=== PATIENT | male | born 1945 | race Caucasian/White ===

== ENCOUNTER 2021-11-15 13:31 | Outpatient (CLI) | payer OTHER, SELFPAY ==
--- NOTE | ~2021-11-15 | XR_ITS ---
XR hip RT min 2V 11/15/2021 13:59 Indication: Chronic hip pain Procedure: 2 views right hip Comparison: No prior studies for comparison. Findings: There is severe osteoarthritis of the right hip. No fracture or traumatic malalignment. No significant soft tissue abnormality. No foreign bodies. Impression: 1: Severe osteoarthritis of the right hip. Reviewed, dictated and finalized at location A. MIC ENGINEER Impression: 1: Severe osteoarthritis of the right hip.
== END 2021-11-15 13:32 | disposition home or self-care (01) ==
LOC: ANHIMG 13:36
PROVIDERS: PCP Internal Medicine; Visit Provider Internal Medicine
DX: M16.11 Unilateral primary osteoarthritis, right hip (principal)
CPT/HCPCS: 73502

== ENCOUNTER 2022-03-29 14:00 | Outpatient (CLI) | payer OTHER, SELFPAY ==
--- NOTE | ~2022-03-29 | CT_ITS ---
EXAMINATION: CT brain wo con DATE: 03/29/2022 14:24 INDICATION: Head injury. Syncope. TECHNIQUE: Computed tomography (CT) of the head was performed without intravenous contrast. The mA wa s adjusted according to patient size. Iterative reconstruction technique was employed. The dose-lengt h product was 605.33 mGy-cm. COMPARISON: None FINDINGS: There are scattered areas of low attenuation in the cerebral white matter. There is no intr acranial hemorrhage, acute infarction, or abnormal intracranial mass lesion. The ventricles are dieter l in size. The orbits are normal. There is mild mucosal thickening in the paranasal sinuses. The mast oid air cells are normal. IMPRESSION: 1. Mild nonspecific cerebral white matter disease, which likely represents chronic small vessel ische rayne disease. Reviewed, dictated and finalized at location A. IMPRESSION: 1. Mild nonspecific cerebral white matter disease, which likely represents transport tech nayana small vessel ischemic disease.
== END 2022-03-29 14:01 | disposition home or self-care (01) ==
PROVIDERS: PCP Internal Medicine; Visit Provider Nurse Practitioner
DX: S09.90XA Unspecified injury of head, initial encounter (principal); R90.82 White matter disease, unspecified
CPT/HCPCS: 70450

== ENCOUNTER 2022-04-09 15:21 | Inpatient (IN) | payer OTHER, SELFPAY ==
[2022-04-09] VITALS (30 sets, daily range): BP systolic 85–178; BP diastolic 60–105; PULSE 60–145; RESP 12–24; TEMP 36.6; O2SAT 82–100; BMI 28.4
--- NOTE | ~2022-04-09 | XR_ITS ---
EXAMINATION: XR chest 1V portable DATE: 04/09/2022 16:04 INDICATION: Weakness. Cardiac arrhythmia. TECHNIQUE: frontal view of the chest was obtained. COMPARISON: Chest radiograph dated 08/04/2008 FINDINGS: The lungs are clear with no focal airspace opacities, pulmonary edema, pleural effusion or pneumothor ax. The cardiomediastinal silhouette is normal. Dual lead pacemaker seen with leads projecting over t he expected locations of the right atrium and right ventricular outflow tract. A pair of defibrillato r pads project over the central chest. IMPRESSION: 1. No acute cardiopulmonary disease. Reviewed, dictated and finalized at location A.
--- NOTE | 2022-04-09 15:32 | ED.AMS ---
HPI - Altered Mental Status General Chief Complaint: Altered Mental Status Stated Complaint: altered, lethargic Time Seen by Provider: 04/09/22 15:32 History of Present Illness HPI narrative: Please start him while he was at a gathering mushrooms, he had been feeling weak and felt like he was going to pass out. History of A. fib, he has been taking all his medications. Denies any other symptoms other than feeling very lightheaded and like he is got a pass out, denies any changes with medications, states that he has just been dehydrated not drinking enough water today. Denies any chest pain, difficulty breathing MD complaint: altered mental status, decreased responsiveness and weakness Related Data Home Medications Medication Instructions Recorded Confirmed apixaban 5 mg tablet 5 mg PO BID 10/31/20 03/26/22 aspirin 81 mg tablet,delayed 81 mg PO DAILY 10/31/20 03/26/22 release carvedilol 6.25 mg tablet 6.25 mg PO ONCE tablet 02/28/22 03/26/22 pantoprazole 40 mg tablet,delayed tablet PO 02/28/22 03/26/22 release spironolactone 25 mg tablet 25 mg PO DAILY tablet 02/28/22 03/26/22 sildenafil (pulm.hypertension) 20 20 mg PO DAILY PRN tablet 03/26/22 03/26/22 mg tablet Allergies Allergy/AdvReac Type Severity Reaction Status Date / Time poison carlos extract Allergy Severe Blister Verified 03/26/22 08:26 Review of Systems Review of Systems: All systems reviewed & are unremarkable except as noted in HPI and below PMFSH Past Medical History Medical History Chronic kidney disease, stage 3 Surgical History Surgical History H/O hernia repair Family History Family History Father Family history of malignant neoplasm, Onset Age: 67 Sibling Family history of lung cancer Patient's sister is in good health Patient's brother is in good health Mother Family history of lung cancer, Onset Age: 80 Family history of cardiovascular disease Social History Social History Smoking packs per day: 0.4 Smoking cigarettes per day: 8.0 Years smoked: 4 Smoking pack-years: 1.60 Smoking status: Former smoker Second hand tobacco smoke exposure: Yes Smoking end date: 12/02/1967 Alcohol intake: current Drinks per week: 10 Alcohol use details: 2 glasses of wine per week Substance use: never Substance use type: does not use Exam Const: General: cooperative and in distress Nutritional Appearance: average body habitus Procedures Procedural Sedation Procedural Sedation #1: Procedural Sedation Date: 04/09/22 Procedural Sedation Time: 15:33 Procedure: synchronized cardioversion Provider Performed: sedation and procedure Informed Consent Obtained: yes Equipment in Room: front desk monitor, crash cart, oxygen and pulse oximeter Plan for Sedation: moderate sedation ASA Class: II Mallampati Classification: class II NPO Status: last liquid food (hours ago) Pt. Educated on Procedural Sedation: Yes Re-evaluated immediately prior: Yes Preparation: front desk monitor applied, pulse oximeter, supplemental O2 applied, reversal agents at bedside, suction/airway equipment at bedside and IV secured Midazolam: IV Midazolam dose (mg): 2 IV Etomidate dose (mg): 20 Patient Tolerated Procedure: well Complications: none Total Sedation Time (min): 20 Other Procedure Procedure 1: Other Procedure: synchronized cardioversion Discharge Plan Discharge Prescriptions: No Action Eliquis 5 mg tablet 5 mg PO BID RF: 0 aspirin [Adult Low Dose Aspirin] 81 mg tablet,delayed release (DR/EC) 81 mg PO DAILY RF: 0 sildenafil (pulm.hypertension) 20 mg tablet
--- NOTE | 2022-04-09 15:36 | PC.NURSE ---
Dr. Ann at bedside explaining risks on cardioversion. VORB for 2mg Versed and 20mg of etimodate.
--- NOTE | 2022-04-09 15:51 | PC.NURSE ---
Pt given 2 mg Versed at 1539 and, 20mg of Etomidate by Dr. Ann Pt cardioverted at 1541 at 150 joules
[2022-04-09 16:01] LABS: Basophils Percent Auto 0.7 % (0.2-1.2); Eosinophils Absolute Auto 0.1 K/mm3 (0-0.3); Eosinophils Percent Auto 1.5 % (0-4.4); Hematocrit 41.5 % (42.0-52.0); Hemoglobin 13.3 g/dL (14.0-18.0); Immature Granulocyte Absolute 0.01 K/mm3 (0.00-0.031); Immature Granulocyte Percent A 0.2 % (0-0.5); Lymphocytes Absolute Auto 0.79 K/mm3 (0.9-3.2); Lymphocytes Percent Auto 17.2 % (18.3-44.2); Mean Corpuscular Hemoglobin 31.8 pg (26-34); Mean Corpuscular Volume 99.3 fl (80-100); Mean Platelet Volume 9.9 fl (7.4-10.4); Monocytes Absolute Auto 0.5 K/mm3 (0.1-0.6); Neutrophils Absolute Auto 3.2 K/mm3 (1.3-6.7); Neutrophils Percent Auto 70.4 % (45.5-73.1); Platelet Count Result 169 k/mm3 (150-375); Red Blood Count 4.18 M/mm3 (4.6-6.20); Red Cell Distribution Width 14.8 % (11.5-14.5); White Blood Count 4.6 K/mm3 (4.5-10.0)
--- NOTE | 2022-04-09 16:08 | ECG_ITS ---
Measurements Intervals [place] Rate: 142 P: 112 SD: 67 QRS: 103 QRSD: 171 T: -77 QT: 368 QTc: 567 Interpretive Statements WIDE COMPLEX TACHYCARDIA, CONSIDER VENTRICULAR TACHYCARDIA LEFT BUNDLE BRANCH BLOCK ABNORMAL ECG Electronically Signed On 04-09-2022 16:44:18 CDT by Hunter Moreau D.O.
--- NOTE | 2022-04-09 16:08 | ECG_ITS ---
Measurements Intervals [place] Rate: 62 P: -75 NH: 330 QRS: -27 QRSD: 125 T: 79 QT: 485 QTc: 494 Interpretive Statements ELECTRONIC ATRIAL PACEMAKER INTRAVENTRICULAR CONDUCTION DELAY CONSIDER INFERIOR INFARCT, AGE INDETERMINATE ST-T WAVE ABNORMALITY IN HIGH LATERAL LEADS- CONSIDER ISCHEMIA ABNORMAL ECG Electronically Signed On 04-09-2022 16:35:01 CDT by Hunter Moreau D.O.
[2022-04-09] MEDS: RAPID SEQUENCE INTUBATION KIT 1 EACH (16:10)
[2022-04-09] MEDS: SODIUM CHLORIDE 0.9% IV 1,000 ML 999 ML IV CONT (16:10)
--- NOTE | 2022-04-09 16:10 | PC.NURSE ---
Pt is fully awake and talking but is asking the same questions over and over. Pt knows name and , and where he is but confused on date.
[2022-04-09 16:13] LABS: Alanine Aminotransferase 33 U/L (6-50); Albumin Level 3.3 g/dL (3.5-5.1); Alkaline Phosphatase 84 U/L (38-126); Anion Gap 6 mmol/L (8-16); Aspartate Amino Transferase 39 U/L (17-59); Bilirubin,Total 0.8 mg/dL (0.2-1.3); Blood Urea Nitrogen 16 mg/dL (9-20); Calcium 7.8 mg/dL (8.4-10.2); Carbon Dioxide 20 mmol/L (22-30); Chloride 112 mmol/L (98-107); Estimated CRCL calculation 42 ml/min; Estimated Glomerular Filt Rate 42; Glucose 84 mg/dL (65-110); Potassium 3.7 mmol/L (3.4-5.0); Sodium 138 mmol/L (137-145)
[2022-04-09 16:36] LABS: Troponin I 0.039 ng/mL (0.000-0.034)
[2022-04-09] MEDS: MAGNESIUM SULF 2 GM/WATER 50ML 2 GM/50 ML BAG IVPB (17:45)
[2022-04-09] MEDS: ASPIRIN 81 MG CHEWABLE TABLET 324 MG PO (17:46)
[2022-04-09] MEDS: KCL 20 MEQ/SW 100 ML 100 ML 50 MEQ IVPB (17:46)
--- NOTE | 2022-04-09 20:06 | PM.IMHP ---
H&P: HPI History of Present Illness Date/Time: 04/09/22 20:06 Chief Complaint: Syncope Narrative: This is a 77-year-old male with past medical history significant for atrial fibrillation patient just recently underwent ablation however had recurrence and then underwent cardioversion, type 2 diabetes mellitus, congestive heart failure with ejection fraction calculated to be 25-30%, implanted defibrillator pacemaker. Patient usually goes to outside hospital to get his care when it comes to heart problems. Patient goes for daily walks, today while he was doing his 2nd lap felt dizzy and returned to his car next seen patient was in the ambulance on route to the hospital and has no recollection of events. At the time of my visit patient stated he was feeling just fine, denies any chest pain, palpitations, shortness of breath, cough, PND, orthopnea, leg swelling, fevers, rigors, chills, cough, sputum production, no calves pain. Preliminary workup was significant for EKG with a wide complex tachycardia. Decision has been made to place the patient to observation for further evaluation management and treatment. Review of Systems Review of Systems: Lightheadedness, syncope. Constitutional: Constitutional: Denies chills, Denies daytime sleepiness, Denies fatigue, Denies fever(s), Denies frequent falls, Denies malaise, Denies night sweats, Denies poor appetite and Denies weakness Eyes: Eyes: Denies change in vision ENT: Denies dysphagia, Denies vertigo, Denies dizziness, Denies nasal congestion, Denies nasal discharge, Denies nasal obstruction and Denies odynophagia Cardiovascular: Cardiovascular: Denies chest pain, Denies diaphoresis, Reports syncope, Denies pedal edema, Denies irregular heart rhythm, Denies leg edema, Reports lightheadedness, Denies radiating jaw, neck or arm pain, Denies palpitations, Denies dyspnea on exertion, Denies orthopnea and Denies paroxysmal nocturnal dyspnea Respiratory: Respiratory: Denies cough, Denies excessive phlegm production and Denies dyspnea Gastrointestinal: Gastrointestinal: Denies abdominal pain, Denies dyspepsia, Denies heartburn, Denies nausea and Denies vomiting Genitourinary: Genitourinary: Reports no additional male genitourinary complaints and Reports as per HPI Musculoskeletal: Musculoskeletal: Denies back pain, Denies myalgias, Denies arthralgias, Denies joint swelling and Denies muscle weakness Integumentary/Breasts: Skin/Breast: Denies rash Neurologic: Denies focal weakness and Denies Sensory deficit (Neuro) Psychiatric: Psychiatric: Reports no additional psychiatric complaints and Reports as per HPI Endocrine: Endocrine: Denies cold intolerance, Denies heat intolerance, Denies polyphagia, Denies polydipsia and Denies palpitations Hematologic/Lymphatic: Hematologic/Lymphatic: Reports no additional hematologic/lymphatic complaints and Reports as per HPI Allergic/Immunologic: Allergic/Immunologic: Reports no additional allergic/immunologic complaints and Reports as per HPI [facility] Past Medical History Medical History Chronic kidney disease, stage 3 Surgical History Surgical History H/O hernia repair Family History Family History Father Family history of malignant neoplasm, Onset Age: 67 Sibling Family history of lung cancer Patient's sister is in good health Patient's brother is in good health Mother Family history of lung cancer, Onset Age: 80 Family history of cardiovascular disease Social History Social History Smoking packs per day: 0.4 Smoking cigarettes per day: 8.0 Years smoked: 4 Smoking pack-years: 1.60 Smoking status: Former smoker Second hand tobacco smoke exposure: Yes Smoking end date: 12/02/1967 Alcohol intake:
--- NOTE | 2022-04-09 21:53 | ADMGEN ---
This patient, Ariel Cifuentes, was admitted to IMU Room 232-01. Patient/family oriented to hospital policies and general routines including ID bracelet, bed and alarms, visiting hours, pain management, procedures, bathroom and other care routines, personal items, smoking policy, room service/diet, and visiting hours. Information on how to activate the Rapid Response Team has been discussed. Patient/Family are encouraged to report perceived risks to care and to ask questions if they do not understand what they are told or what they should do.
[2022-04-09] MEDS: SACUBITRIL/VALSARTAN 49-51 MG TABLET 1 TABLET PO (22:38)
[2022-04-09] MEDS: APIXABAN 5 MG TABLET PO (22:38)
[2022-04-10] VITALS (23 sets, daily range): BP systolic 130–183; BP diastolic 72–106; PULSE 59–73; RESP 20–22; TEMP 36.6–37.4; O2SAT 95–100
--- NOTE | 2022-04-10 | ECHO_ITS ---
Patient Info Name: Ariel Cifuentes Age: 77 years : 1945 Gender: Male Ht: 75 in Wt: 227 lbs BSA: 2.35 m2 HR: 64 bpm BP: 149 / 81 mmHg Heart Rhythm: Sinus Rhythm Technical Quality: Fair Exam Date: 04/10/2022 7:34 AM Exam Location: [facility] Pulmonary Patient Status: Inpatient Admit Date: 04/09/2022 Staff Ordering Physician: Caroline Ann MD Siding Coreboard Inspector: Irene Talamantes RDCS Attending Provider: Hill Mota M.A., MD Exam Type: CA echo doppler color flow Study Info Indications - WCT Complete two-dimensional, color flow and Doppler transthoracic echocardiogram is performed. Summary 1. Complete two-dimensional, color flow and Doppler transthoracic echocardiogram is performed. 2. Mild LVH, mild LV enlargement, borderline LV systolic function, ejection fraction approximately 50%. Diastolic dysfunction is present with elevated left heart pressures. Severe left atrial enlargement. Mild right atrial enlargement. Linear artifact in the RV/RA-pacemaker lead. Trivial mitral regurgitation. Mild aortic valve sclerosis, mild aortic valve stenosis, maximum velocity 1.7 m/sec, mean gradient 7 mmHg. ANNA MARIE is 2.1 cm2. Trace aortic regurgitation. Slus-[id number] tricuspid regurgitation, severe pulmonary hypertension, RVSP 63 mmHg. Mild pulmonic regurgitation. Left Ventricle Left ventricular chamber dimension is mildly enlarged. Left ventricular systolic function is mildly reduced, estimated at 45-50%. There is mildly increased left ventricular wall thickness. The left ventricular diastolic function is abnormal. E/e' 14.8 is elevated. Right Ventricle Right ventricular chamber dimension is normal. Right ventricular systolic function is normal. Left Atria Left atrial chamber dimension is severely enlarged. Right Atria Right atrial chamber dimension is mildly enlarged. Aortic Valve There is mild aortic valve sclerosis. There is mild aortic valve stenosis with a peak velocity of 174 cm/s, mean gradient of 7 mmHg, and aortic valve area of 1.7 cm2. There is trace aortic valve regurgitation. Pulmonic Valve The pulmonic valve is normal. There is mild pulmonic regurgitation. Mitral Valve The mitral valve has normal leaflets. There is no mitral valve stenosis. There is trace mitral valve regurgitation. Tricuspid Valve The tricuspid valve leaflets are normal. There is mild to moderate tricuspid valve regurgitation. Severe pulmonary hypertension, estimated pulmonary arterial systolic pressure is 63 mmHg. Pericardium/Pleural The pericardium appears epicardial fat pad. Inferior Vena Cava Normal inferior vena cava with >50% collapse upon inspiration consistent with Empty right atrial pressure, 10 mmHg. Aorta The aortic root size at the sinus of Valsalva is normal. The prox ascending aorta size is normal. Left Ventricular Outflow Tract Name Value Normal LVOT 2D LVOT Diameter 2.3 cm LVOT Doppler LVOT Peak Gradient 3 mmHg LVOT Mean Gradient 1 mmHg LVOT VTI 16 cm LVOT VTI/AV VTI Ratio 0.4
[2022-04-10 04:50] LABS: Anion Gap 5 mmol/L (8-16); Blood Urea Nitrogen 16 mg/dL (9-20); Calcium 7.5 mg/dL (8.4-10.2); Carbon Dioxide 21 mmol/L (22-30); Chloride 113 mmol/L (98-107); Estimated CRCL calculation 47 ml/min; Estimated Glomerular Filt Rate 49; Glucose 90 mg/dL (65-110); Magnesium 2.5 mg/dL (1.6-2.3); Potassium 3.9 mmol/L (3.4-5.0); Sodium 139 mmol/L (137-145)
[2022-04-10 04:57] LABS: Basophils Percent Auto 0.9 % (0.2-1.2); Eosinophils Absolute Auto 0.1 K/mm3 (0-0.3); Eosinophils Percent Auto 2.2 % (0-4.4); Hematocrit 39.1 % (42.0-52.0); Hemoglobin 12.9 g/dL (14.0-18.0); Immature Granulocyte Absolute 0.02 K/mm3 (0.00-0.031); Immature Granulocyte Percent A 0.4 % (0-0.5); Lymphocytes Absolute Auto 0.88 K/mm3 (0.9-3.2); Lymphocytes Percent Auto 19.3 % (18.3-44.2); Mean Corpuscular Hemoglobin 32.2 pg (26-34); Mean Corpuscular Volume 97.5 fl (80-100); Mean Platelet Volume 9.9 fl (7.4-10.4); Monocytes Absolute Auto 0.4 K/mm3 (0.1-0.6); Monocytes Percent Auto 9.7 % (2.6-8.5); Neutrophils Absolute Auto 3.1 K/mm3 (1.3-6.7); Neutrophils Percent Auto 67.5 % (45.5-73.1); Platelet Count Result 154 k/mm3 (150-375); Red Blood Count 4.01 M/mm3 (4.6-6.20); Red Cell Distribution Width 14.9 % (11.5-14.5); White Blood Count 4.6 K/mm3 (4.5-10.0)
[2022-04-10 05:09] LABS: Troponin I 0.169 ng/mL (0.000-0.034)
[2022-04-10] MEDS: ATORVASTATIN 40 MG TABLET PO (08:48)
[2022-04-10] MEDS: SACUBITRIL/VALSARTAN 49-51 MG TABLET 1 TABLET PO ×2 (08:48→16:38)
[2022-04-10] MEDS: APIXABAN 5 MG TABLET PO (08:48)
--- NOTE | 2022-04-10 10:09 | PC.NURSE ---
Telephone order read back, Dr. Bone Canceled order for Lovenox sub Q. Patient currently on Eliquis 5MG BID.
--- NOTE | 2022-04-10 10:40 | PC.NURSE ---
Spoke with [facility] regarding interrogation report. [phone]. Ban stated she will contact the rep Evelio to see where the report is and have him call us.
--- NOTE | 2022-04-10 10:48 | PC.NURSE ---
Spoke with Robert Arizmendi rep Evelio [phone]. Stated that he will fax interrogation report to the IMU. Evelio stated NO events were recorded.
--- NOTE | 2022-04-10 11:38 | PM.CNCAR ---
Assessment and Plan Assessment and plan (1) Wide-complex tachycardia: Code(s): I47.2 - Ventricular tachycardia Status: Acute Assessment and Plan: Clinical presentation more concerning for ventricular tachycardia given reported recent decline in EF to 25-30%, history of CAD, recurrent near-syncope and syncope with wide complex tachycardia status post defibrillation. However, cannot exclude SVT with aberrancy. Discussed with patient this is very difficult to determine although clinically more concerning for VT and would best be managed in this regard until proven otherwise. Discussed concern for degeneration to VF and sudden cardiac concept of upgrade pacemaker to ICD and biventricular ICD which would require transfer to an outside hospital. Discussed my recommendation for coronary angiography off Eliquis to exclude acute coronary event has precipitating ischemic contribution. Discussed options including transferred to [facility] versus [facility]. He has received much of his cardiovascular care at [facility] and so agrees to transfer to [facility]. I contacted Dr. Palomares of EP who agreed and accepted pt in transfer. -he was loaded with amiodarone after defibrillation in the ER. Of note he was recently taken off amiodarone within the past 1-2 weeks by EP. All options discussed in great detail the patient. All questions answered to his satisfaction. Spent 75 minutes in the care of this patient including examination, discussions at bedside, communication with colleagues at [facility], chart review, medical decision-making, and documentation. (2) Syncope: Code(s): R55 - Syncope and collapse Status: Acute Assessment and Plan: While precise etiology remains unclear it would be a significant coincidence for new wide complex tachycardia to be incidental and completely unrelated. Recurrent near-syncope and now syncope presenting with wide complex tachycardia concerning for VT as above. If VT felt to be explanation ICD indicated on this basis alone. However, we discussed some discrepancy and possibility this may not in fact be ventricular in origin but that I feel it is more prudent to treated as such until proven otherwise. He is in agreement with this thought process and plan of care. Will resume oral amiodarone. Carvedilol recently discontinued due to complaints of dizziness. (3) Elevated troponin: Code(s): R77.8 - Other specified abnormalities of plasma proteins Status: Acute Assessment and Plan: While he does not report anginal symptoms he has known underlying CAD and a such may be a type 2 infarction secondary to syncope related to wide complex tachycardia as opposed to acute coronary plaque rupture. 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 Hold Eliquis. I have recommended coronary angiography to redefine his coronary anatomy. 60% stenosis in LAD on left heart catheterization May 2020. (4) Nonischemic congestive cardiomyopathy: Code(s): I42.0 - Dilated cardiomyopathy Status: Acute Assessment and Plan: Reported EF declined to 25-30%, however, preliminary review of echocardiogram this hospitalization reveals EF 50% with very slight anterior hypokinesis, mild LV enlargement. Given the uncertainty in this regard I recommend transfer to [facility] for further EP evaluation and management as well as coronary angiography. He is currently compensated. Continue August Eckert. (5) CAD (coronary artery disease): Code(s): I25.10 - Atherosclerotic heart disease of [place] coronary artery without angina pectoris Status: Acute Assessment and Plan: Continue aggressive medical therapy. Aspirin 81 mg daily off Eliquis. Continue atorvastatin. Beta-duy as tolerated statin, Zetia. (6) Paroxysmal atrial fibrillation: Code(s): I48.0 - Paroxysmal atrial fibrillation
[2022-04-10 14:40] LABS: SARS-CoV-2 RNA PCR Negative
--- NOTE | 2022-04-10 15:21 | PC.NURSE ---
Called [facility] transfer center with COVID test results. Stated no other information is needed at this time.
--- NOTE | 2022-04-10 16:11 | PM.IMPN ---
Progress Note: A&P Assessment and Plan (1) Syncope: Code(s): R55 - Syncope and collapse Status: Acute Assessment and Plan: Patient's preliminary EKG showed a wide complex tachycardia Presence of pacemaker defibrillator will interrogate device (2) Paroxysmal atrial fibrillation: Code(s): I48.0 - Paroxysmal atrial fibrillation Status: Acute Assessment and Plan: Patient has undergone multiple ablations and cardioversions with no success or temporarily successful (3) Nonischemic congestive cardiomyopathy: Code(s): I42.0 - Dilated cardiomyopathy Status: Acute Assessment and Plan: Continue Entresto seen by cardiology decided on transfer for higher level of care for ICD biventricular placement and upgrade and rpt heart cath previous heart cath in may 2020 (4) Chronic kidney disease, stage 3: Code(s): N18.3 - Chronic kidney disease, stage 3 (moderate) Status: Acute Assessment and Plan: creat is 1.4 which is baseline Subjective Date/time seen: 04/10/22 16:11 Interval history: 77-year-old male with past medical history significant for atrial fibrillation patient just recently underwent ablation however had recurrence and then underwent cardioversion, type 2 diabetes mellitus, congestive heart failure with ejection fraction calculated to be 25-30%, implanted defibrillator pacemaker. Awaiting transfer to [facility] for up grade of ICD and heart cath. Pt needing higher level of care. Review of Systems Review of Systems: All systems reviewed & are unremarkable except as noted in HPI and below Exam Const: General: cooperative and healthy appearing; No in distress Nutritional Appearance: overweight Orientation/consciousness: oriented to person HENMT: Head: normal to inspection Resp: Effort & Inspection: no respiratory distress Auscultation: no rhonchi and no wheezes Cardio: Rate: regular rate Rhythm: regular rhythm GI: Inspection: normal to inspection GI Palp: No abdominal tenderness, No Guarding due to palpation present (GI) and No Hepatomegaly present Auscultation: normal bowel sounds Neuro: General: oriented to person Objective Data Vital Signs Vital Signs: Vital Signs - 24 hr 04/09/22 16:15 04/09/22 16:19 04/09/22 16:34 Temperature Pulse Rate 60 60 Pulse Rate [Monitor] 60 Respiratory Rate 18 18 12 Blood Pressure 121/68 Blood Pressure [Left Arm] 121/68 Pulse Oximetry 99 99 04/09/22 16:47 04/09/22 17:02 04/09/22 17:16 Temperature Pulse Rate 60 60 60 Pulse Rate [Monitor] Respiratory Rate 13 16 16 Blood Pressure 157/91 H Blood Pressure [Left Arm] Pulse Oximetry 99 100 04/09/22 17:17 04/09/22 17:30 04/09/22 17:31 Temperature Pulse Rate 60 63 62 Pulse Rate [Monitor] Respiratory Rate 16 20 19 Blood Pressure 163/92 H Blood Pressure [Left Arm] Pulse Oximetry 91 04/09/22 18:39 04/09/22 19:20 04/09/22 19:30 Temperature Pulse Rate 60 61 61 Pulse Rate [Monitor] Respiratory Rate 18 17 18 Blood Pressure Blood Pressure [Left Arm] Pulse Oximetry 100 100 100 04/09/22 19:31 04/09/22 19:45 04/09/22 19:46 Temperature Pulse Rate 61 60 60 Pulse Rate [Monitor] Respiratory Rate 20 18 20 Blood Pressure 178/94 H 172/105 H Blood Pressure [Left Arm] Pulse Oximetry 100 100 99 04/09/22 20:00 04/09/22 20:01 04/09/22 20:15 Temperature Pulse Rate 60 60 60 Pulse Rate [Monitor] Respiratory Rate 17 16 18 Blood Pressure 171/91 H Blood Pressure [Left Arm] Pulse Oximetry 100 99 99 04/09/22 20:16 04/09/22 21:05 04/09/22 21:29 Temperature 36.6 C Pulse Rate 60 78 72 Pulse Rate [Monitor] Respiratory Rate 21 H 18 20 Blood Pressure 174/91 H 148/88 H 162/100 H Blood Pressure [Left Arm] Pulse Oximetry 100 98 100 04/09/22 22:35 04/09/22 23:08 04/10/22 00:00 Temperature 36.6 C Pulse Rate 73 60 61 Pulse Rate [Monitor] Respiratory Rate 18 20 B
[2022-04-10] MEDS: AMIODARONE HCL 200 MG TABLET 400 MG PO (16:37)
[2022-04-11] VITALS (19 sets, daily range): BP systolic 138–174; BP diastolic 82–92; PULSE 60–76; RESP 16–22; TEMP 36.7–37.6; O2SAT 95–98
[2022-04-11] MEDS: hydrALAZINE HCL 20 MG/ML VIAL 10 MG IV PUSH (00:30)
--- NOTE | 2022-04-11 07:55 | PC.NURSE ---
Received call from [facility] transfer center. Spoke with Mrs Lozano, gave update on patient vitals and status. A bed is not available at this time, patient will remain on wait list.
[2022-04-11] MEDS: SACUBITRIL/VALSARTAN 49-51 MG TABLET 1 TABLET PO ×2 (09:23→16:51)
[2022-04-11] MEDS: ATORVASTATIN 40 MG TABLET PO (09:23)
[2022-04-11] MEDS: AMIODARONE HCL 200 MG TABLET 400 MG PO (09:24)
--- NOTE | 2022-04-11 11:25 | PM.PNCARD ---
Progress Note: A&P Assessment and Plan (1) Wide-complex tachycardia: Code(s): I47.2 - Ventricular tachycardia Status: Acute Assessment and Plan: Clinical presentation initially more concerning for ventricular tachycardia given reported recent decline in EF to 25-30%, history of CAD, recurrent near-syncope and syncope with wide complex tachycardia status post defibrillation. However, cannot exclude SVT with aberrancy. -EF 50% by echo this hospitalization. Therefore, progressive underlying CAD seems much less likely as precipitating event and explanation of prior LV dysfunction. Discussed with patient this is very difficult to determine although clinically more concerning for VT and would best be managed in this regard until proven otherwise. -he has been accepted and is awaiting transfer to [facility] for further electrophysiology evaluation and management which is not available at this institution. -continue amiodarone, reduce to 400 mg daily. (2) Syncope: Code(s): R55 - Syncope and collapse Status: Acute Assessment and Plan: Precise etiology remains unclear but it would be an unlikely coincidence for new wide complex tachycardia to be incidental and completely unrelated. If VT felt to be explanation ICD indicated on this basis alone. Continue oral amiodarone. Monitor BP, orthostatics. Carvedilol recently discontinued due to complaints of dizziness. (3) Elevated troponin: Code(s): R77.8 - Other specified abnormalities of plasma proteins Status: Acute Assessment and Plan: While he does not report anginal symptoms he has known underlying CAD and a such may be a type 2 infarction secondary to syncope related to wide complex tachycardia as opposed to acute coronary plaque rupture. 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 Hold Eliquis. I have recommended coronary angiography to redefine his coronary anatomy. 60% stenosis in LAD on left heart catheterization May 2020. (4) Nonischemic congestive cardiomyopathy: Code(s): I42.0 - Dilated cardiomyopathy Status: Acute Assessment and Plan: Prior reported EF declined to 25-30%, however, preliminary review of echocardiogram this hospitalization reveals EF approximately 50% mild LV enlargement. Continue Entresto, Jardiance. He is compensated from heart failure perspective. He is currently compensated. Continue Entresto, Jardiance. (5) CAD (coronary artery disease): Code(s): I25.10 - Atherosclerotic heart disease of [place] coronary artery without angina pectoris Status: Acute Assessment and Plan: Continue aggressive medical therapy. Aspirin 81 mg daily off Eliquis. Continue atorvastatin. Beta-duy as tolerated statin, Zetia. (6) Paroxysmal atrial fibrillation: Code(s): I48.0 - Paroxysmal atrial fibrillation Status: Acute Assessment and Plan: No noted recurrence. Recently amiodarone was discontinued and carvedilol. Continue amiodarone for now. Anticoagulation held in anticipation for possible electrophysiology procedure. (7) Pacemaker: Code(s): Z95.0 - Presence of cardiac pacemaker Status: Acute Assessment and Plan: Idylistronic device, interrogation confirms wide complex tachycardia difficult to state with certainty VT vs SVT with aberrancy as above. Normal device function. Currently a paced ventricular sensed rhythm on telemetry. (8) Chronic anticoagulation: Code(s): Z79.01 - cooker chip (current) use of anticoagulants Status: Acute Assessment and Plan: Eliquis on hold for anticipated invasive procedure. Subjective Date/time seen: Date of service: 04/11/22 11:25 Follow-up for elevated troponin, syncope, wide complex tachycardia Patient feeling well this morning. No issues overnight. Denies dizziness, chest pain, palpitations, shortness of breath. Ambulating without difficu
--- NOTE | 2022-04-11 13:53 | PM.IMPN ---
Progress Note: A&P Assessment and Plan (1) Syncope: Code(s): R55 - Syncope and collapse Status: Acute Assessment and Plan: Patient's preliminary EKG showed a wide complex tachycardia Presence of pacemaker defibrillator will interrogate device (2) Paroxysmal atrial fibrillation: Code(s): I48.0 - Paroxysmal atrial fibrillation Status: Acute Assessment and Plan: Patient has undergone multiple ablations and cardioversions with no success or temporarily successful Amiodarone adjusted today by cardiology (3) Nonischemic congestive cardiomyopathy: Code(s): I42.0 - Dilated cardiomyopathy Status: Acute Assessment and Plan: Continue Entresto seen by cardiology decided on transfer for higher level of care for ICD biventricular placement and upgrade and rpt heart cath previous heart cath in may 2020 (4) Chronic kidney disease, stage 3: Code(s): N18.3 - Chronic kidney disease, stage 3 (moderate) Status: Acute Assessment and Plan: creat is 1.4 which is baseline Subjective Date/time seen: 04/11/22 13:53 Interval history: 77-year-old male with past medical history significant for atrial fibrillation patient just recently underwent ablation however had recurrence and then underwent cardioversion, type 2 diabetes mellitus, congestive heart failure with ejection fraction calculated to be 25-30%, implanted defibrillator pacemaker. Awaiting transfer to [facility] for up grade of ICD and heart cath. Pt needing higher level of care. Awaiting transfer to [facility], pt seen by cardiology today. No issues overnight. Review of Systems Review of Systems: All systems reviewed & are unremarkable except as noted in HPI and below Exam Const: General: cooperative and healthy appearing; No in distress Nutritional Appearance: overweight Orientation/consciousness: oriented to person HENMT: Head: normal to inspection Resp: Effort & Inspection: no respiratory distress Auscultation: no rhonchi and no wheezes Cardio: Rate: regular rate Rhythm: regular rhythm GI: Inspection: normal to inspection Auscultation: normal bowel sounds Neuro: General: oriented to person Objective Data Vital Signs Vital Signs: Vital Signs - 24 hr 04/10/22 14:00 04/10/22 16:00 04/10/22 16:16 Temperature 36.8 C Pulse Rate 60 70 71 Respiratory Rate 22 H Blood Pressure 171/106 H Pulse Oximetry 100 04/10/22 16:37 04/10/22 17:36 04/10/22 18:00 Temperature Pulse Rate 73 65 Respiratory Rate Blood Pressure 174/85 H Pulse Oximetry 04/10/22 19:19 04/10/22 20:00 04/10/22 20:50 Temperature 36.6 C Pulse Rate 59 L 65 Respiratory Rate 20 Blood Pressure 183/99 H Pulse Oximetry 99 99 04/10/22 22:00 04/10/22 23:53 04/11/22 00:00 Temperature 37.4 C Pulse Rate 62 71 64 Respiratory Rate 20 Blood Pressure 170/94 H Pulse Oximetry 95 04/11/22 01:48 04/11/22 02:00 04/11/22 04:00 Temperature 37.6 C Pulse Rate 62 60 70 Respiratory Rate 16 Blood Pressure 166/88 H 160/85 H Pulse Oximetry 98 04/11/22 06:00 04/11/22 08:00 04/11/22 08:22 Temperature 37.1 C Pulse Rate 62 75 76 Respiratory Rate 22 H Blood Pressure 174/92 H Pulse Oximetry 98 98 04/11/22 09:24 04/11/22 10:00 04/11/22 12:00 Temperature Pulse Rate 72 62 71 Respiratory Rate Blood Pressure Pulse Oximetry 98 04/11/22 12:09 Temperature 37.2 C Pulse Rate 64 Respiratory Rate 20 Blood Pressure 164/82 H Pulse Oximetry 96 Intake/Output Intake/Output: Intake & Output 04/08/22 04/09/22 04/10/22 04/11/22 23:59 23:59 23:59 23:59 Intake Total 1150 1220 480 Output Total 500 450 Balance 1150 720 30 Meds/Results Medications: Active Medications Generic Name Dose Route Start Last Admin Trade Name Pabloq PRN Reason Stop Dose Admin Amiodarone HCl 400 mg 04/10/22 17:00 04/11/22 09:24 Amiodarone Hcl 200 Mg Tablet PO 400 mg BID [facility]
--- NOTE | 2022-04-11 14:38 | PC.NURSE ---
Patient is complaining of itchy back and red hands. Notified Dr. Nicholas of patient complaint. Dr. Nicholas said she checked Medication list for antibiotics or medications that could cause a rash. Will continue to monitor patient for distress or worsening condition. Benadryl cream has been ordered.
--- NOTE | 2022-04-11 14:56 | PC.NURSE ---
spoke with transfer center 14:56. There is not a bed available at this time. Patient status was updated. Patient remains on transfer list.
[2022-04-11] MEDS: DIPHENHYDRAMINE 1%/ZINC 0.1% CREAM 30 GM TUBE 1 APPLIC TOPICAL ×2 (16:51→21:44)
[2022-04-12] VITALS (25 sets, daily range): BP systolic 120–183; BP diastolic 73–101; PULSE 60–73; RESP 18–22; TEMP 35.8–36.6; O2SAT 96–100
[2022-04-12 06:33] LABS: Anion Gap 6 mmol/L (8-16); Blood Urea Nitrogen 11 mg/dL (9-20); Calcium 7.6 mg/dL (8.4-10.2); Carbon Dioxide 21 mmol/L (22-30); Chloride 105 mmol/L (98-107); Estimated CRCL calculation 62 ml/min; Estimated Glomerular Filt Rate 59; Glucose 82 mg/dL (65-110); Potassium 3.8 mmol/L (3.4-5.0); Sodium 132 mmol/L (137-145)
--- NOTE | 2022-04-12 06:48 | PC.NURSE ---
04/11/22 2330 - Spoke with [facility] transfer center and provided most recent vital signs.
[2022-04-12] MEDS: ATORVASTATIN 40 MG TABLET PO (07:59)
[2022-04-12] MEDS: diphenhydrAMINE HCl CAP 25 MG CAPSULE PO (07:59)
[2022-04-12] MEDS: SACUBITRIL/VALSARTAN 49-51 MG TABLET 1 TABLET PO ×2 (07:59→18:20)
[2022-04-12] MEDS: AMIODARONE HCL 200 MG TABLET 400 MG PO (07:59)
--- NOTE | 2022-04-12 09:03 | PM.PNCARD ---
Progress Note: A&P Assessment and Plan (1) Wide-complex tachycardia: Code(s): I47.2 - Ventricular tachycardia <LIZBETH Deutsch - Last Filed: 04/12/22 14:57> Status: Acute <LIZBETH Deutsch - Last Filed: 04/12/22 14:57> Assessment and Plan: Clinical presentation initially more concerning for ventricular tachycardia given reported recent decline in EF to 25-30%, history of CAD, recurrent near-syncope and syncope with wide complex tachycardia status post defibrillation. However, cannot exclude SVT with aberrancy. -EF 50% by echo this hospitalization. Therefore, progressive underlying CAD seems much less likely as precipitating event and explanation of prior LV dysfunction. -he has been accepted and is awaiting transfer to [facility] for further electrophysiology evaluation and management which is not available at this institution. -continue amiodarone 400mg daily -No recurrence of WCT on telemetry <LIZBETH Deutsch - Last Filed: 04/12/22 14:57> (2) Syncope: Code(s): R55 - Syncope and collapse <LIZBETH Deutsch - Last Filed: 04/12/22 14:57> Status: Acute <LIZBETH Deutsch - Last Filed: 04/12/22 14:57> Assessment and Plan: Precise etiology remains unclear but it would be an unlikely coincidence for new wide complex tachycardia to be incidental and completely unrelated. If VT felt to be explanation ICD indicated on this basis alone. Continue oral amiodarone. Monitor BP, orthostatics. Carvedilol recently discontinued due to complaints of dizziness. <LIZBETH Deutsch - Last Filed: 04/12/22 14:57> (3) Elevated troponin: Code(s): R77.8 - Other specified abnormalities of plasma proteins <LIZBETH Deutsch - Last Filed: 04/12/22 14:57> Status: Acute <LIZBETH Deutsch - Last Filed: 04/12/22 14:57> Assessment and Plan: While he does not report anginal symptoms he has known underlying CAD and a such may be a type 2 infarction secondary to syncope related to wide complex tachycardia as opposed to acute coronary plaque rupture. 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 60% stenosis in LAD on left heart catheterization May 2020. Hold Eliquis in anticipation for cardiac cath when transferred to [facility]. <LIZBETH Deutsch - Last Filed: 04/12/22 14:57> (4) Nonischemic congestive cardiomyopathy: Code(s): I42.0 - Dilated cardiomyopathy <LIZBETH Deutsch - Last Filed: 04/12/22 14:57> Status: Acute <LIZBETH Deutsch - Last Filed: 04/12/22 14:57> Assessment and Plan: Prior reported EF declined to 25-30%, however, preliminary review of echocardiogram this hospitalization reveals EF approximately 50% mild LV enlargement. Continue Entresto, Jardiance. He is compensated from heart failure perspective. Continue Entresto, Jardiance. <LIZBETH Deutsch - Last Filed: 04/12/22 14:57> (5) CAD (coronary artery disease): Code(s): I25.10 - Atherosclerotic heart disease of [place] coronary artery without angina pectoris <LIZBETH Deutsch - Last Filed: 04/12/22 14:57> Status: Acute <LIZBETH Deutsch - Last Filed: 04/12/22 14:57> Assessment and Plan: Continue aggressive medical therapy. Aspirin 81 mg daily off Eliquis. Continue atorvastatin. Beta-duy as tolerated statin, Zetia. <LIZBETH Deutsch - Last Filed: 04/12/22 14:57> (6) Paroxysmal atrial fibrillation: Code(s): I48.0 - Paroxysmal atrial fibrillation <LIZBETH Deutsch - Last Filed: 04/12/22 14:57> Status: Acute <LIZBETH Deutsch - Last Filed: 04/12/22 14:57> Assessment and Plan: No noted recurrence. Recently amiodarone was discontinued and carvedilol. Continue amiodarone for now. Anticoagulation held in anticipation for possible electrophysiology procedure. <
[2022-04-12] MEDS: DIPHENHYDRAMINE 1%/ZINC 0.1% CREAM 30 GM TUBE 1 APPLIC TOPICAL ×2 (09:09→19:59)
[2022-04-12] MEDS: METOPROLOL SUCCINATE EXT REL 12.5 MG TABCR PO (09:09)
--- NOTE | 2022-04-12 09:30 | PC.NURSE ---
Notified Cardiology of morning BP and that it was running high all night and asked if they would like to add anything for blood pressure. They stated that they would review it.
--- NOTE | 2022-04-12 10:50 | PC.NURSE ---
Received call from transfer center. Updated them with latest vitals. No bed available at this time.
[2022-04-12 14:08] LABS: Hemoglobin A1C 5.4 % (<5.7)
--- NOTE | 2022-04-12 16:13 | PM.IMPN ---
Progress Note: A&P Assessment and Plan (1) Wide-complex tachycardia: Code(s): I47.2 - Ventricular tachycardia Status: Acute Assessment and Plan: Clinical presentation initially more concerning for ventricular tachycardia given reported recent decline in EF to 25-30%, history of CAD, recurrent near-syncope and syncope with wide complex tachycardia status post defibrillation. However, cannot exclude SVT with aberrancy. -EF 50% by echo this hospitalization. Therefore, progressive underlying CAD seems much less likely as precipitating event and explanation of prior LV dysfunction. -he has been accepted and is awaiting transfer to [facility] for further electrophysiology evaluation and management which is not available at this institution. -continue amiodarone 400mg daily -No recurrence of WCT on telemetry (2) Syncope: Code(s): R55 - Syncope and collapse Status: Acute Assessment and Plan: Precise etiology remains unclear but it would be an unlikely coincidence for new wide complex tachycardia to be incidental and completely unrelated. If VT felt to be explanation ICD indicated on this basis alone. Continue oral amiodarone. Monitor BP, orthostatics. Carvedilol recently discontinued due to complaints of dizziness. (3) Elevated troponin: Code(s): R77.8 - Other specified abnormalities of plasma proteins Status: Acute Assessment and Plan: While he does not report anginal symptoms he has known underlying CAD and a such may be a type 2 infarction secondary to syncope related to wide complex tachycardia as opposed to acute coronary plaque rupture. 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 60% stenosis in LAD on left heart catheterization May 2020. Hold Eliquis in anticipation for cardiac cath when transferred to [facility]. (4) Nonischemic congestive cardiomyopathy: Code(s): I42.0 - Dilated cardiomyopathy Status: Acute Assessment and Plan: echocardiogram this hospitalization reveals EF approximately 50% mild LV enlargement. Continue Entresto, Jardiance. He is compensated from heart failure perspective. Continue Entresto, Jardiance. (5) CAD (coronary artery disease): Code(s): I25.10 - Atherosclerotic heart disease of [place] coronary artery without angina pectoris Status: Acute Assessment and Plan: Continue aggressive medical therapy. Aspirin 81 mg daily off Eliquis. Continue atorvastatin. Beta-duy as tolerated statin, Zetia. (6) Paroxysmal atrial fibrillation: Code(s): I48.0 - Paroxysmal atrial fibrillation Status: Acute Assessment and Plan: No noted recurrence. Recently amiodarone was discontinued and carvedilol. Continue amiodarone for now. Anticoagulation held in anticipation for possible electrophysiology procedure. (7) Pacemaker: Code(s): Z95.0 - Presence of cardiac pacemaker Status: Acute Assessment and Plan: Visual Realmtronic device, interrogation confirms wide complex tachycardia difficult to state with certainty VT vs SVT with aberrancy as above. Normal device function. Currently a paced ventricular sensed rhythm on telemetry. (8) Chronic anticoagulation: Code(s): Z79.01 - rn long term care (current) use of anticoagulants Status: Acute Assessment and Plan: Eliquis on hold for anticipated invasive procedure. (9) Dilutional hyponatremia: Code(s): E87.1 - Hypo-osmolality and hyponatremia Status: Acute Assessment and Plan: Acute onset of hyponatremia likely secondary to saline administration, will discontinue IV fluids and start mild fluid restriction, anticipate this to resolve by tomorrow, reviewing Is and Os, patient is positive 1800 mL over the last 2 days Subjective Date/time seen: 04/12/22 16:13 Interval history: 77-year-old male with past medical history significant for atrial fibrillation patient just recently under
[2022-04-12] MEDS: SPIRONOLACTONE 25 MG TABLET PO (20:00)
[2022-04-13] VITALS (13 sets, daily range): BP systolic 130–166; BP diastolic 75–111; PULSE 60–74; RESP 16–20; TEMP 36.1–37.1; O2SAT 96–99
[2022-04-13] MEDS: hydrALAZINE HCL 20 MG/ML VIAL 10 MG IV PUSH (00:27)
[2022-04-13 08:49] LABS: Hematocrit 43.4 % (42.0-52.0); Hemoglobin 14.4 g/dL (14.0-18.0); Mean Corpuscular HGB Conc 33.2 g/dl (32-36); Mean Corpuscular Hemoglobin 31.6 pg (26-34); Mean Corpuscular Volume 95.4 fl (80-100); Mean Platelet Volume 9.6 fl (7.4-10.4); Platelet Count Result 141 k/mm3 (150-375); Red Blood Count 4.55 M/mm3 (4.6-6.20); Red Cell Distribution Width 14.8 % (11.5-14.5)
[2022-04-13 09:03] LABS: Anion Gap 6 mmol/L (8-16); Blood Urea Nitrogen 11 mg/dL (9-20); Carbon Dioxide 22 mmol/L (22-30); Chloride 107 mmol/L (98-107); Estimated CRCL calculation 67 ml/min; Estimated Glomerular Filt Rate > 60; Glucose 84 mg/dL (65-110); Potassium 3.9 mmol/L (3.4-5.0); Sodium 135 mmol/L (137-145)
[2022-04-13] MEDS: AMIODARONE HCL 200 MG TABLET 400 MG PO (09:41)
[2022-04-13] MEDS: METOPROLOL SUCCINATE EXT REL 12.5 MG TABCR PO (09:41)
[2022-04-13] MEDS: SPIRONOLACTONE 25 MG TABLET PO (09:42)
[2022-04-13] MEDS: SACUBITRIL/VALSARTAN 49-51 MG TABLET 1 TABLET PO (09:42)
[2022-04-13] MEDS: ATORVASTATIN 40 MG TABLET PO (09:42)
--- NOTE | 2022-04-13 11:04 | PM.PNCARD ---
Progress Note: A&P Assessment and Plan (1) Wide-complex tachycardia: Code(s): I47.2 - Ventricular tachycardia Status: Acute Assessment and Plan: Clinical presentation initially more concerning for ventricular tachycardia given reported recent decline in EF to 25-30%, history of CAD, recurrent near-syncope and syncope with wide complex tachycardia status post defibrillation. However, cannot exclude SVT with aberrancy. -EF 50% by echo this hospitalization. Therefore, progressive underlying CAD seems much less likely as precipitating event and explanation of prior LV dysfunction. -he has been accepted and is awaiting transfer to [facility] for further electrophysiology evaluation and management which is not available at this institution. -continue amiodarone 400mg daily -No recurrence of WCT on telemetry (2) Syncope: Code(s): R55 - Syncope and collapse Status: Acute Assessment and Plan: Precise etiology remains unclear but it would be an unlikely coincidence for new wide complex tachycardia to be incidental and completely unrelated. If VT felt to be explanation ICD indicated on this basis alone. Continue oral amiodarone. Monitor BP, orthostatics. Carvedilol recently discontinued due to complaints of dizziness. (3) Elevated troponin: Code(s): R77.8 - Other specified abnormalities of plasma proteins Status: Acute Assessment and Plan: While he does not report anginal symptoms he has known underlying CAD and a such may be a type 2 infarction secondary to syncope related to wide complex tachycardia as opposed to acute coronary plaque rupture. 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 60% stenosis in LAD on left heart catheterization May 2020. Hold Eliquis in anticipation for cardiac cath when transferred to [facility]. (4) Nonischemic congestive cardiomyopathy: Code(s): I42.0 - Dilated cardiomyopathy Status: Acute Assessment and Plan: Prior reported EF declined to 25-30%, however, preliminary review of echocardiogram this hospitalization reveals EF approximately 50% mild LV enlargement. Continue Entresto, Jardiance. He is compensated from heart failure perspective. Continue Entresto, Jardiance. (5) CAD (coronary artery disease): Code(s): I25.10 - Atherosclerotic heart disease of [place] coronary artery without angina pectoris Status: Acute Assessment and Plan: Continue aggressive medical therapy. Aspirin 81 mg daily off Eliquis. Continue atorvastatin. Beta-duy as tolerated statin, Zetia. (6) Paroxysmal atrial fibrillation: Code(s): I48.0 - Paroxysmal atrial fibrillation Status: Acute Assessment and Plan: No noted recurrence. Recently amiodarone was discontinued and carvedilol. Continue amiodarone for now. Anticoagulation held in anticipation for possible electrophysiology procedure. (7) Pacemaker: Code(s): Z95.0 - Presence of cardiac pacemaker Status: Acute Assessment and Plan: Vinjatronic device, interrogation confirms wide complex tachycardia difficult to state with certainty VT vs SVT with aberrancy as above. Normal device function. Currently a paced ventricular sensed rhythm on telemetry. (8) Chronic anticoagulation: Code(s): Z79.01 - senior care (current) use of anticoagulants Status: Acute Assessment and Plan: Eliquis on hold for anticipated invasive procedure. Subjective Date/time seen: 04/13/22 11:04 cardiology follow up for wide complex tachycardia, syncope, atrial fibrillation No acute events overnight. Remains atrially paced on telemetry, no recurrence of WCT noteed. Patient denies any palpitations, dizziness, chest pain. Review of Systems Review of Systems: All systems reviewed & are unremarkable except as noted in HPI and below Constitutional: Constitutional: Reports as per HPI and Reports no additional consti
--- NOTE | 2022-04-13 14:06 | PM.IMPN ---
Progress Note: A&P Assessment and Plan (1) Wide-complex tachycardia: Code(s): I47.2 - Ventricular tachycardia Status: Acute Assessment and Plan: Clinical presentation initially more concerning for ventricular tachycardia given reported recent decline in EF to 25-30%, history of CAD, recurrent near-syncope and syncope with wide complex tachycardia status post defibrillation. However, cannot exclude SVT with aberrancy. -EF 50% by echo this hospitalization. Therefore, progressive underlying CAD seems much less likely as precipitating event and explanation of prior LV dysfunction. -he has been accepted and is awaiting transfer to [facility] for further electrophysiology evaluation and management which is not available at this institution. -continue amiodarone 400mg daily -No recurrence of WCT on telemetry (2) Syncope: Code(s): R55 - Syncope and collapse Status: Acute Assessment and Plan: Precise etiology remains unclear but it would be an unlikely coincidence for new wide complex tachycardia to be incidental and completely unrelated. If VT felt to be explanation ICD indicated on this basis alone. Continue oral amiodarone. Monitor BP, orthostatics. Carvedilol recently discontinued due to complaints of dizziness. (3) Elevated troponin: Code(s): R77.8 - Other specified abnormalities of plasma proteins Status: Acute Assessment and Plan: While he does not report anginal symptoms he has no known underlying CAD and a such may be a type 2 infarction secondary to syncope related to wide complex tachycardia as opposed to acute coronary plaque rupture. 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 60% stenosis in LAD on left heart catheterization May 2020. Hold Eliquis in anticipation for cardiac cath when transferred to [facility]. (4) Nonischemic congestive cardiomyopathy: Code(s): I42.0 - Dilated cardiomyopathy Status: Acute Assessment and Plan: echocardiogram this hospitalization reveals EF approximately 50% mild LV enlargement. Continue Entresto, Jardiance. He is compensated from heart failure perspective. Continue Entresto, Jardiance. (5) CAD (coronary artery disease): Code(s): I25.10 - Atherosclerotic heart disease of [place] coronary artery without angina pectoris Status: Acute Assessment and Plan: Continue aggressive medical therapy. Aspirin 81 mg daily off Eliquis. Continue atorvastatin. Beta-duy as tolerated statin, Zetia. (6) Paroxysmal atrial fibrillation: Code(s): I48.0 - Paroxysmal atrial fibrillation Status: Acute Assessment and Plan: No noted recurrence. Recently amiodarone was discontinued and carvedilol. Continue amiodarone for now. Anticoagulation held in anticipation for possible electrophysiology procedure. (7) Pacemaker: Code(s): Z95.0 - Presence of cardiac pacemaker Status: Acute Assessment and Plan: Beisentronic device, interrogation confirms wide complex tachycardia difficult to state with certainty VT vs SVT with aberrancy as above. Normal device function. Currently a paced ventricular sensed rhythm on telemetry. (8) Chronic anticoagulation: Code(s): Z79.01 - salvage determiner (current) use of anticoagulants Status: Acute Assessment and Plan: Eliquis on hold for anticipated invasive procedure. (9) Dilutional hyponatremia: Code(s): E87.1 - Hypo-osmolality and hyponatremia Status: Acute Assessment and Plan: Acute onset of hyponatremia likely secondary to saline administration, will discontinue IV fluids and start mild fluid restriction, anticipate this to resolve by tomorrow, reviewing Is and Os, patient is positive 1800 mL over the last 2 days, slowly improving Subjective Date/time seen: 04/13/22 14:06 Patient states he feels about the same as yesterday. He is continuing to have a rash on his back. H
--- NOTE | 2022-04-13 14:36 | PM.DS ---
DS: Admitting Diagnosis Discharge Date April 13, 2022 Admitting Diagnosis Presyncopal episode DS: Discharge Diagnosis Discharge Diagnosis (1) Wide-complex tachycardia: Code(s): I47.2 - Ventricular tachycardia Status: Acute Assessment and Plan: Clinical presentation initially more concerning for ventricular tachycardia given reported recent decline in EF to 25-30%, history of CAD, recurrent near-syncope and syncope with wide complex tachycardia status post defibrillation. However, cannot exclude SVT with aberrancy. -EF 50% by echo this hospitalization. Therefore, progressive underlying CAD seems much less likely as precipitating event and explanation of prior LV dysfunction. -he has been accepted and is awaiting transfer to [facility] for further electrophysiology evaluation and management which is not available at this institution. -continue amiodarone 400mg daily -No recurrence of WCT on telemetry (2) Syncope: Code(s): R55 - Syncope and collapse Status: Acute Assessment and Plan: Precise etiology remains unclear but it would be an unlikely coincidence for new wide complex tachycardia to be incidental and completely unrelated. If VT felt to be explanation ICD indicated on this basis alone. Continue oral amiodarone. Monitor BP, orthostatics. Carvedilol recently discontinued due to complaints of dizziness. (3) Elevated troponin: Code(s): R77.8 - Other specified abnormalities of plasma proteins Status: Acute Assessment and Plan: While he does not report anginal symptoms he has no known underlying CAD and a such may be a type 2 infarction secondary to syncope related to wide complex tachycardia as opposed to acute coronary plaque rupture. 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 60% stenosis in LAD on left heart catheterization May 2020. Hold Eliquis in anticipation for cardiac cath when transferred to [facility]. (4) Nonischemic congestive cardiomyopathy: Code(s): I42.0 - Dilated cardiomyopathy Status: Acute Assessment and Plan: echocardiogram this hospitalization reveals EF approximately 50% mild LV enlargement. Continue Entresto, Jardiance. He is compensated from heart failure perspective. Continue Entresto, Jardiance. (5) CAD (coronary artery disease): Code(s): I25.10 - Atherosclerotic heart disease of squaxin coronary artery without angina pectoris Status: Acute Assessment and Plan: Continue aggressive medical therapy. Aspirin 81 mg daily off Eliquis. Continue atorvastatin. Beta-duy as tolerated statin, Zetia. (6) Paroxysmal atrial fibrillation: Code(s): I48.0 - Paroxysmal atrial fibrillation Status: Acute Assessment and Plan: No noted recurrence. Recently amiodarone was discontinued and carvedilol. Continue amiodarone for now. Anticoagulation held in anticipation for possible electrophysiology procedure. (7) Pacemaker: Code(s): Z95.0 - Presence of cardiac pacemaker Status: Acute Assessment and Plan: [employer] device, interrogation confirms wide complex tachycardia difficult to state with certainty VT vs SVT with aberrancy as above. Normal device function. Currently a paced ventricular sensed rhythm on telemetry. 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 (9) Dilutional hyponatremia: Code(s): E87.1 - Hypo-osmolality and hyponatremia Status: Acute Assessment and Plan: Acute onset of hyponatremia likely secondary to saline administration, will discontinue IV fluids and start mild fluid restriction, anticipate this to resolve by tomorrow, reviewing Is and Os, patient is positive 1800 mL over the last 2 days, almost normalized by transfer DS: Summary Hospital Course R
--- NOTE | 2022-04-13 16:34 | PM.TDS ---
Transfer Discharge Sum: Prov Provider Date of admission: 04/09/22 18:41 Primary care physician: Micky Dominique DO Admitting clinician: Hill Mota MD Consults: 04/09/22 Consult to Physician Routine Comment: Consulting Provider: Ty Iqbal Reason for consultation: WCT resolved with electricity Has provider been notified: Yes DS: Admitting Diagnosis Discharge Date 04/13/22 Admitting Diagnosis presyncopal Transfer Discharge Sum: Med Medications Active and Home Medications: Home Medications apixaban 5 mg tablet 5 mg PO BID 10/31/20 [History Confirmed 04/09/22] atorvastatin 40 mg PO DAILY 04/09/22 [History Confirmed 04/09/22] empagliflozin [Jardiance] 10 mg PO DAILY 04/09/22 [History Confirmed 04/09/22] ezetimibe 10 mg PO DAILY 04/09/22 [History Confirmed 04/09/22] sacubitril-valsartan [Entresto] 1 tablet PO BID 04/09/22 [History Confirmed 04/09/22] Active Medications Amiodarone HCl (Amiodarone Hcl 200 Mg Tablet) 400 mg PO QAM [facility] Last Admin: 04/13/22 09:41 Dose: 400 mg Documented by: Atorvastatin Calcium (Atorvastatin 40 Mg Tablet) 40 mg PO DAILY [facility] Last Admin: 04/13/22 09:42 Dose: 40 mg Documented by: Diphenhydramine HCl (Diphenhydramine Hcl Cap 25 Mg Capsule) 25 mg PO Q6H PRN PRN Reason: Itching Last Admin: 04/12/22 07:59 Dose: 25 mg Documented by: Hydralazine HCl (Hydralazine Hcl 20 Mg/Ml Vial) 10 mg IV PUSH Q8H PRN PRN Reason: Blood Pressure - High Last Admin: 04/13/22 00:27 Dose: 10 mg Documented by: Metoprolol Succinate (Metoprolol Succinate Ext Rel 12.5 Mg Tabcr) 12.5 mg PO QAM [facility] Last Admin: 04/13/22 09:41 Dose: 12.5 mg Documented by: Perflutren Lipid Microsphere (Perflutren Lipid Microspheres 1.5 Ml Vial Diluted To 10 Ml Total Volume) 0 ml IV PUSH ONCE PRN; Protocol PRN Reason: adequate visualization Perflutren Lipid Microsphere (Perflutren Lipid Microspheres 1.5 Ml Vial Diluted To 10 Ml Total Volume) 0 ml IV PUSH ONCE PRN; Protocol PRN Reason: adequate visualization Sacubitril/Valsartan (Sacubitril/Valsartan 49-51 Mg Tablet) 1 tablet PO BID [facility] Last Admin: 04/13/22 09:42 Dose: 1 tablet Documented by: Spironolactone (Spironolactone 25 Mg Tablet) 25 mg PO QAM [facility] Last Admin: 04/13/22 09:42 Dose: 25 mg Documented by: Zinc Acetate/Diphenhydramine (Diphenhydramine 1%/Zinc 0.1% Cream 30 Gm Tube) 1 applic TOPICAL QID PRN PRN Reason: Itching Last Admin: 04/12/22 19:59 Dose: 1 applic Documented by: Transfer Discharge Sum: Hosp Hospital Course Hospital course: 77-year-old male with past medical history significant for atrial fibrillation and recent ablation status post recurrence and cardioversion is presenting with presyncopal episode. He also has a past medical history significant for type 2 diabetes mellitus, congestive heart failure with an EF of 25-30%, ICD and pacemaker implanted. Patient states he goes for a walk every day however today when he went for a walk he felt a little dizzy and then has some amnesia regarding the rest of the event. By the time he arrived to the ER, his symptoms have completely resolved. However, he was admitted due to an abnormal EKG and concern for electrical conductivity of the heart being abnormal. Cardiology was consulted. Clinical presentation was concerning for ventricular tachycardia due to recent decline in EF. His current loss prevention representative at [facility] was contacted and agreed to accept the patient in transfer. He was loaded with amiodarone in the ER. While awaiting transfer to [facility], patient developed some hyponatremia, likely thought to be iatrogenic from normal saline administration. IV fluids discontinued, sodium improved. Fluid restriction added, sodium essentially normalized prior to transfer. Of note, prior to discharge, patient was found to have a follicular like erythematous rash on his back that he was given Benadryl cream for with some relief. It does not appear infected, but cou
== END 2022-04-13 17:38 | disposition short-term general hospital (02) | DRG 309 ==
LOC: ANHED 16:24 → ANHIMU 20:36
PROVIDERS: Family Medicine; Internal Medicine; Nurse Practitioner Adult Health; Admitting Provider Hospitalist; Emergency Provider Emergency Medicine; PCP Internal Medicine; Visit Provider Student in an Organized Health Care Education/Training Program
DX: I47.2 Ventricular tachycardia (principal); I42.0 Dilated cardiomyopathy; E87.1 Hypo-osmolality and hyponatremia; R55 Syncope and collapse; Z20.822 Contact with and (suspected) exposure to COVID-19; I48.0 Paroxysmal atrial fibrillation; N18.30 Chronic kidney disease, stage 3 unspecified; E11.22 Type 2 diabetes mellitus with diabetic chronic kidney disease; I50.9 Heart failure, unspecified; Z87.891 Personal history of nicotine dependence; Z95.0 Presence of cardiac pacemaker; Z79.01 Long term (current) use of anticoagulants; Z79.899 Other long term (current) drug therapy; Z82.49 Family history of ischemic heart disease and other diseases of the circulatory system; Z80.1 Family history of malignant neoplasm of trachea, bronchus and lung; Z79.84 Long term (current) use of oral hypoglycemic drugs; R77.8 Other specified abnormalities of plasma proteins; I25.10 Atherosclerotic heart disease of native coronary artery without angina pectoris; R21 Rash and other nonspecific skin eruption
CPT/HCPCS: 36415; 71045; 80048; 80053; 83036; 83735; 84484; 85025; 85027; 92960; 93005; 93306; 96365; 96368; 99285; A9270; C9803; J0282; J0360; J2250; J3475; J3480; J7030; U0003; U0005

== ENCOUNTER 2022-07-17 15:53 | Outpatient (CLI) | payer OTHER, SELFPAY ==
--- NOTE | ~2022-07-17 | XR_ITS ---
EXAMINATION: XR chest 2V DATE: 07/17/2022 16:21 INDICATION: Shortness of breath. TECHNIQUE: Frontal and lateral views of the chest were obtained. COMPARISON: Chest single view 04/09/2022 FINDINGS: There are airspace opacities in right middle lobe and right lower lobe. There is mild atele ctasis in left lower lung zone. There is a small to moderate-sized right pleural effusion. There is a small left pleural effusion. No pneumothorax. The heart size is normal. There is a left chest pacer/ defibrillator with leads in right atrium, right ventricle, and coronary sinus. IMPRESSION: 1. Small to moderate-sized right pleural effusion with airspace opacities in right middle lobe and ri ght lower lobe, consistent with pneumonia. 2. Small left pleural effusion with mild atelectasis in left lower lung zone. Reviewed, dictated and finalized at location A. IMPRESSION: 1. Small to moderate-sized right pleural effusion with airspace opacities in ri ght middle lobe and right lower lobe, consistent with pneumonia. 2. Small left pleural effusion with mild atelectasis in left lower lung zone.
== END 2022-07-17 15:54 | disposition home or self-care (01) ==
PROVIDERS: PCP Internal Medicine; Visit Provider Nurse Practitioner
DX: R06.02 Shortness of breath (principal); Z87.09 Personal history of other diseases of the respiratory system; J90 Pleural effusion, not elsewhere classified
CPT/HCPCS: 71046

== ENCOUNTER 2022-07-19 13:29 | Observation (INO) | payer OTHER, SELFPAY ==
[2022-07-19] VITALS (24 sets, daily range): BP systolic 132–171; BP diastolic 83–111; PULSE 60–91; RESP 14–23; TEMP 36.2–37.1; O2SAT 88–100; BMI 29.4
--- NOTE | ~2022-07-19 | XR_ITS ---
EXAMINATION: [id number] DATE: 07/20/2022 11:46 INDICATION: Status post right thoracentesis TECHNIQUE: frontal and lateral views of the chest were obtained. COMPARISON: Chest radiograph and CT dated 07/19/2022 FINDINGS: Decrease in size of a small right pleural effusion. Opacities in the right lower lung zone consistent with associated right lower lobar atelectasis and/or pneumonia. Minimal streaky left basilar atelect asis. No pulmonary edema, pneumothorax or left-sided pleural effusion. Cardiomegaly. Three lead pacem aleida/AICD seen with leads projecting over the expected locations of the right atrial appendage, apex of the right ventricle and overlying the left ventricle likely having traversed the coronary sinus. IMPRESSION: 1. Decreased small right pleural effusion with associated right lower lobar atelectasis the/or pneumo maykel. 2. Cardiomegaly. Reviewed, dictated and finalized at location A. IMPRESSION: 1. Decreased small right pleural effusion with associated right lower lobar ate lectasis the/or pneumonia. 2. Cardiomegaly.
--- NOTE | ~2022-07-19 | XR_ITS ---
EXAMINATION: XR chest 2V DATE: 07/19/2022 14:18 INDICATION: Shortness of breath TECHNIQUE: PA and lateral views of the chest are obtained. COMPARISON: 07/17/2022 FINDINGS: There is a [id number] sized right pleural effusion without significant change. A sma ll left pleural effusion is stable. There are stable airspace opacities of the lower lobes and right middle lobe. The heart size is normal. A triple lead cardiac pacemaker of the left chest wall ends wi th leads in expected locations. There are bridging osteophytes at multiple levels in the spine, consi stent with diffuse idiopathic skeletal hyperostosis (DISH). IMPRESSION: 1. Small to moderate size right pleural effusion and small left pleural effusion without significant change. 2. Airspace opacities of the lung bases and right middle lobe, consistent with atelectasis versus pne umonia. Reviewed, dictated and finalized at location A. IMPRESSION: 1. Small to moderate size right pleural effusion and small left pleural effusio n without significant change. 2. Airspace opacities of the lung bases and right middle lobe, consistent with atelectasis versus pneumonia.
--- NOTE | ~2022-07-19 | CT_ITS ---
EXAMINATION: CTA chest PE protocol DATE: 07/19/2022 18:41 INDICATION: Shortness of breath. TECHNIQUE: Computed tomography angiography (CTA) of the chest was performed with 100 mL Omnipaque-350 intravenous contrast timed to evaluate the pulmonary arteries. Coronal maximum intensity projection 3D-reconstructions were created by the technologist. Automated exposure control and iterative reconst ruction technique were employed. The dose-length product was 781.77 mGy-cm. COMPARISON: Chest CT 10/04/2008 FINDINGS: There are large right and small left pleural effusions. There is smooth septal thickening i n the lungs, consistent mild pulmonary edema. There is atelectasis involving right middle lobe and ri ght lower lobe. There is hypoenhancement in right lung lower lobe. Cardiomegaly is noted. There are c oronary artery calcifications. No pericardial effusion. There is a left chest wall pacer with leads i n the right atrium and right ventricle. There is no pulmonary embolus. There are cysts in the liver m easuring up to 2.8 cm. There are bridging endplate osteophytes at multiple levels in the spine, consi stent with diffuse idiopathic skeletal hyperostosis (DISH). There is severe cervical spondylosis. IMPRESSION: 1. No pulmonary embolus. 2. Mild pulmonary edema. 3. Large right and small left pleural effusions. 4. Hypoenhancement in atelectasis in right lower lobe is indeterminate for pneumonia. 5. Cardiomegaly. Reviewed, dictated and finalized at location A. IMPRESSION: 1. No pulmonary embolus. 2. Mild pulmonary edema. 3. Large right and small left pleural effusions. 4. Hypoenhancement in atelectasis in right lower lobe is indeterminate for pneu monia. 5. Cardiomegaly.
--- NOTE | ~2022-07-19 | XR_ITS ---
EXAMINATION: XR chest 1V portable DATE: 07/22/2022 06:36 INDICATION: Shortness of breath. TECHNIQUE: A single frontal view of the chest was obtained. COMPARISON: Chest 2 views 07/19/2022, chest CT 07/19/2022 FINDINGS: There is a small right pleural effusion. There are airspace opacities at right lung base. N o pneumothorax. Cardiomegaly is noted. There is a left chest pacer/defibrillator with leads in right atrium, right ventricle, and coronary sinus. IMPRESSION: 1. Stable small right pleural effusion. 2. Improved airspace opacities at right lung base, consistent with atelectasis versus pneumonia. 3. Cardiomegaly. Reviewed, dictated and finalized at location A.
--- NOTE | ~2022-07-19 | US_ITS ---
EXAMINATION: US thoracentesis DATE: 07/20/2022 11:55 INDICATION: Right pleural effusion TECHNIQUE: The procedure and its risks and benefits were discussed with the patient. Potential risks discussed included bleeding, infection, and pneumothorax. The patient understood the risks and agreed to proceed. The skin was prepped and draped in sterile fashion. 1% lidocaine was used for local anes thesia. Under ultrasound guidance, a 5 Fr catheter with trochar was advanced into the right pleural e ffusion. Fluid was aspirated. The catheter was removed, and a dressing was applied. There were no imm ediate complications. FINDINGS: Ultrasound images demonstrate a moderate-sized right pleural effusion and the catheter within the flu id. IMPRESSION: 1. Successful ultrasound-guided thoracentesis yielding 1200 mL of clear dark yellow fluid. Reviewed, dictated and finalized at location A. IMPRESSION: 1. Successful ultrasound-guided thoracentesis yielding 1200 mL of clear dark y ellow fluid.
--- NOTE | 2022-07-19 13:53 | ECG_ITS ---
Measurements Intervals [place] Rate: 78 P: 60 WY: 168 QRS: -87 QRSD: 207 T: 64 QT: 514 QTc: 586 Interpretive Statements ELECTRONIC ATRIAL PACEMAKER ELECTRONIC VENTRICULAR PACEMAKER ATYPICAL ECG COMPARED TO ECG 04/09/2022 15:43:59 NO SIGNIFICANT CHANGES Electronically Signed On 07-19-2022 13:59:11 CDT by Ty Iqbal M.D.
[2022-07-19 14:08] LABS: Basophils Absolute Auto 0.1 K/mm3 (0.0-0.1); Basophils Percent Auto 1.2 % (0.2-1.2); Eosinophils Absolute Auto 0.1 K/mm3 (0-0.3); Eosinophils Percent Auto 1.6 % (0-4.4); Hematocrit 40.3 % (42.0-52.0); Hemoglobin 12.8 g/dL (14.0-18.0); Immature Granulocyte Absolute 0.02 K/mm3 (0.00-0.031); Immature Granulocyte Percent A 0.4 % (0-0.5); Lymphocytes Absolute Auto 0.72 K/mm3 (0.9-3.2); Lymphocytes Percent Auto 14.4 % (18.3-44.2); Mean Corpuscular HGB Conc 31.8 g/dl (32-36); Mean Corpuscular Hemoglobin 31.1 pg (26-34); Mean Corpuscular Volume 97.8 fl (80-100); Mean Platelet Volume 9.4 fl (7.4-10.4); Monocytes Absolute Auto 0.3 K/mm3 (0.1-0.6); Monocytes Percent Auto 6.4 % (2.6-8.5); Neutrophils Absolute Auto 3.8 K/mm3 (1.3-6.7); Platelet Count Result 249 k/mm3 (150-375); Red Blood Count 4.12 M/mm3 (4.6-6.20)
[2022-07-19 14:21] LABS: Alanine Aminotransferase 42 U/L (6-50); Albumin Level 3.3 g/dL (3.5-5.1); Alkaline Phosphatase 95 U/L (38-126); Anion Gap 3 mmol/L (8-16); Aspartate Amino Transferase 47 U/L (17-59); Bilirubin,Total 0.7 mg/dL (0.2-1.3); Blood Urea Nitrogen 20 mg/dL (9-20); Calcium 8.3 mg/dL (8.4-10.2); Carbon Dioxide 29 mmol/L (22-30); Chloride 105 mmol/L (98-107); Estimated CRCL calculation 44 ml/min; Estimated Glomerular Filt Rate 45; Glucose 84 mg/dL (65-110); Potassium 4.3 mmol/L (3.4-5.0); Sodium 137 mmol/L (137-145)
--- NOTE | 2022-07-19 16:23 | PC.NURSE ---
called lab and spoke with Marisela @ [phone] to add on the BNP ordered -NC
[2022-07-19 16:51] LABS: NT Pro B Type Natriuretic Pept 7260 pg/mL (5-100)
--- NOTE | 2022-07-19 16:59 | ED.GENADULT ---
HPI - General Adult General Chief complaint: Shortness of Breath/Dyspnea Stated complaint: sob Time Seen by Provider: 07/19/22 16:16 History of Present Illness HPI narrative: 77-year-old male presenting to the emergency department for evaluation of worsening exertional shortness of breath. 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 Discharge summary from patient's last follow-up with his primary care physician noted that the patient had a drained pleural effusion. Patient states he has been home for approximately 2 weeks. Patient began having some exertional shortness of breath and was started on cefdinir by his primary care physician. Related Data Home Medications Medication Instructions Recorded Confirmed apixaban 5 mg tablet (Eliquis) 5 mg PO BID 10/31/20 07/17/22 ezetimibe 10 mg tablet 10 mg PO DAILY 04/09/22 07/17/22 metoprolol succ 25 1 tablet PO DAILY 04/23/22 07/17/22 mg-hydrochlorothiazide 12.5 mg tablet,ext.rel 24 hr aspirin 81 mg tablet,delayed 81 mg PO DAILY 05/14/22 07/17/22 release amiodarone 400 mg tablet 200 mg PO DAILY 07/17/22 07/17/22 Allergies Allergy/AdvReac Type Severity Reaction Status Date / Time poison carlos extract Allergy Severe Blister Verified 07/19/22 15:33 Review of Systems Review of Systems: CONSTITUTIONAL: Denies fever, chills, or sweats. EYES: Denies visual changes, redness, or discharge. ENT: Denies rhinorrhea, congestion, sore throat, or otalgia. CARDIOVASCULAR: Denies chest pain, palpitations, or edema. RESPIRATORY: Exertional shortness of breath, see HPI GASTROINTESTINAL: Denies abdominal pain, nausea, vomiting, or diarrhea. GENITOURINARY: Denies dysuria or hematuria. SKIN: Denies rash or itching. MUSCULOSKELETAL: Denies back pain, joint pain, or myalgia. NEUROLOGIC: Denies headache, numbness, or weakness. [facility] Past Medical History Medical History CAD (coronary artery disease) Chronic anticoagulation Chronic kidney disease, stage 3 Nonischemic congestive cardiomyopathy Pacemaker Ventricular tachyarrhythmia Surgical History Surgical History H/O hernia repair Family History Family History Father Family history of malignant neoplasm, Onset Age: 67 Sibling Family history of lung cancer Patient's sister is in good health Patient's brother is in good health Mother Family history of lung cancer, Onset Age: 80 Family history of cardiovascular disease Social History Social History Smoking packs per day: 0.4 Smoking cigarettes per day: 8.0 Years smoked: 4 Smoking pack-years: 1.60 Smoking status: Former smoker Second hand tobacco smoke exposure: Yes Smoking end date: 12/02/1967 Alcohol intake: never Drinks per week: 10 Alcohol use details: 2 glasses of wine per week Substance use: never Substance use type: does not use Spiritual care concerns: Yes Exam Narrative: APPEARANCE: Well appearing, no pain, no distress, well-nourished. HEAD: normocephalic, atraumatic. EYES: PERRLA/EOMI, conjunctivae clear. NOSE: Normal no drainage NECK: Supple. No adenopathy, no masses. RESPIRATORY: Airway patent, respirations nonlabored. Clear to auscultation bilaterally, no rales, rhonchi, wheezing. CARDIOVASCULAR: Regular rate and rhythm without murmurs rubs or gallops. ABDOMINAL: Soft, nontender, nondistended, normal bowel sounds MUSCULOSKELETAL: Moves all extremities. Strength/ROM intact, No edema, No calf tenderness. NEURO: Alert. Cranial nerves II through XII intact. Grossly intact SKIN: Warm, dry. Normal Color Course Course Emergency Course: Patient was started on Lasix for the elevated BNP. CTA showed no evidence of pulm embolism but did show bilateral pleur
[2022-07-19] MEDS: ALBUTEROL SULFATE NEB 2.5 MG/3 ML INH 5 MG INHALATION (17:12)
[2022-07-19] MEDS: FUROSEMIDE INJ 40 MG/4 ML VIAL IV PUSH (17:29)
--- NOTE | 2022-07-19 20:23 | ADMGEN ---
This patient, Ariel Cifuentes, was admitted to Medical Room 250-01. Patient/family oriented to hospital policies and general routines including ID bracelet, bed and alarms, visiting hours, pain management, procedures, bathroom and other care routines, personal items, smoking policy, room service/diet, and visiting hours. Information on how to activate the Rapid Response Team has been discussed. Patient/Family are encouraged to report perceived risks to care and to ask questions if they do not understand what they are told or what they should do.
[2022-07-19 20:32] LABS: SARS-CoV-2 RNA PCR Negative
--- NOTE | 2022-07-19 22:29 | PM.IMHP ---
H&P: HPI History of Present Illness Date/Time: 07/19/22 22:29 Chief Complaint: Dyspnea on exertion Narrative: Greater than 30 minutes spent reviewing chart, evaluating, treating, counseling patient. Anticipate less than 48 hour admission, will admit under observation. 77-year-old male past medical history of CAD ([facility] 05/2020 showing 60% lad stenosis), heart failure reduced ejection fraction (04/2022 TTE LVEF 50%, DD, mild LV enlargement), status post ppm, history of ventricular tachyarrhythmia now status post AICD April/2022, paroxysmal AFib on Eliquis, BPH, HTN/HLD. Presents with dyspnea on exertion that started last Saturday. Patient was recently admitted at [place] 06/2022 for heart failure exacerbation and pneumonia. He had a large right pleural effusion that was drained, 1.5 L out on the right side. 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 He states he had 2 days of antibiotics and then did not receive anymore. He recently saw his PCP and was started on cefdinir for 10 days, which he has taken 1 day of. He denies any fevers or chills, however had a productive cough of clear sputum with intermittent pink sputum that started today. Denies chest pain. Denies nausea/vomiting, diarrhea/constipation, hematuria/dysuria. Denies worsening lower extremity edema, abdominal distention. In ED, vitals stable. Labs remarkable [place] 7260. CT PA done that was negative for PE, however large right pleural effusion with compressive atelectasis noted and mild pulmonary congestion. Patient was given a dose of IV Lasix, albuterol treatment. Review of Systems Review of Systems: Ten point ROS reviewed, negative unless otherwise specified per HPI [facility] Past Medical History Medical History CAD (coronary artery disease) Chronic anticoagulation Chronic kidney disease, stage 3 Nonischemic congestive cardiomyopathy Pacemaker Ventricular tachyarrhythmia Surgical History Surgical History H/O hernia repair Family History Family History Father Family history of malignant neoplasm, Onset Age: 67 Sibling Family history of lung cancer Patient's sister is in good health Patient's brother is in good health Mother Family history of lung cancer, Onset Age: 80 Family history of cardiovascular disease Social History Social History Smoking packs per day: 0.4 Smoking cigarettes per day: 8.0 Years smoked: 4 Smoking pack-years: 1.60 Smoking status: Former smoker Second hand tobacco smoke exposure: Yes Smoking end date: 12/02/1967 Alcohol intake: never Drinks per week: 10 Alcohol use details: 2 glasses of wine per week Substance use: never Substance use type: does not use Spiritual care concerns: Yes Meds Home Medications and Allergies Home Medications Medication Instructions Recorded Confirmed Type apixaban 5 mg tablet (Eliquis) 5 mg PO BID 10/31/20 07/19/22 History ezetimibe 10 mg tablet 10 mg PO DAILY 04/09/22 07/19/22 History aspirin 81 mg tablet,delayed 81 mg PO HS 05/14/22 07/19/22 History release amiodarone 400 mg tablet 200 mg PO DAILY 07/17/22 07/19/22 History cefdinir 300 mg capsule 300 mg PO Q12H 10 days #20 caps 07/17/22 07/19/22 Rx metoprolol tartrate 25 mg tablet 50 mg PO HS 07/19/22 07/19/22 History Allergies Allergy/AdvReac Type Severity Reaction Status Date / Time poison carlos extract Allergy Severe Blister Verified 07/19/22 22:45 Vital Signs Vital Signs - 24 hr 07/19/22 13:47 07/19/22 15:29 07/19/22 15:32 Temperature 98.7 F Pulse Rate 63 62 Respiratory Rate 17 17 Blood Pressure 132/83 161/102 H Pulse Oximetry 98 100 Oxygen Delivery Room Air Room Air 07/19/22 15:24 07/19/22 15:25 07/19/22 15:30
[2022-07-19] MEDS: AZITHROMYCIN 250 MG TABLET 500 MG PO (23:12)
[2022-07-19] MEDS: METOPROLOL TARTRATE 50 MG TAB PO (23:12)
[2022-07-20] VITALS (12 sets, daily range): BP systolic 132–174; BP diastolic 75–95; PULSE 60–76; RESP 16–20; TEMP 36.1–36.7; O2SAT 90–99
[2022-07-20 05:43] LABS: INR 1.4; Prothrombin Time 16.8 Seconds (11.1-14.7)
[2022-07-20 05:48] LABS: Lactate Dehydrogenase 216 U/L (120-246)
[2022-07-20 05:55] LABS: Basophils Absolute Auto 0.1 K/mm3 (0.0-0.1); Basophils Percent Auto 1.3 % (0.2-1.2); Eosinophils Absolute Auto 0.1 K/mm3 (0-0.3); Eosinophils Percent Auto 1.8 % (0-4.4); Hematocrit 37.6 % (42.0-52.0); Hemoglobin 12.2 g/dL (14.0-18.0); Immature Granulocyte Absolute 0.01 K/mm3 (0.00-0.031); Immature Granulocyte Percent A 0.3 % (0-0.5); Lymphocytes Absolute Auto 0.79 K/mm3 (0.9-3.2); Lymphocytes Percent Auto 19.8 % (18.3-44.2); Mean Corpuscular HGB Conc 32.4 g/dl (32-36); Mean Corpuscular Hemoglobin 31.3 pg (26-34); Mean Corpuscular Volume 96.4 fl (80-100); Monocytes Absolute Auto 0.4 K/mm3 (0.1-0.6); Monocytes Percent Auto 9.5 % (2.6-8.5); Neutrophils Absolute Auto 2.7 K/mm3 (1.3-6.7); Neutrophils Percent Auto 67.3 % (45.5-73.1); Platelet Count Result 231 k/mm3 (150-375)
[2022-07-20 07:58] LABS: Anion Gap 5 mmol/L (8-16); Blood Urea Nitrogen 18 mg/dL (9-20); Carbon Dioxide 28 mmol/L (22-30); Chloride 106 mmol/L (98-107); Estimated CRCL calculation 42 ml/min; Estimated Glomerular Filt Rate 42; Glucose 90 mg/dL (65-110); Sodium 139 mmol/L (137-145)
[2022-07-20 08:57] LABS: Partial Thromboplastin Time 34.2 SECONDS (22.3-36.8)
--- NOTE | 2022-07-20 09:45 | P.PNIM_ITS ---
Progress Note: A&P Assessment and Plan (1) Pleural effusion: Code(s): J90 - Pleural effusion, not elsewhere classified Status: Acute Assessment and Plan: * Recurrent right pleural effusion, appears to have began in June. * 04/2022 chest x-ray does not show right pleural effusion. 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 * BNP is 7260 * IV lasix 40mg IV daily continued, titrate as indicated * Daily weights * Strict I&Os * Trend output (3) CAD (coronary artery disease): Code(s): I25.10 - Atherosclerotic heart disease of [place] coronary artery without angina pectoris Status: Acute Assessment and Plan: * Continue aspirin and Zetia * No notable chest pain (4) Chronic kidney disease, stage 3: Code(s): N18.3 - Chronic kidney disease, stage 3 (moderate) Status: Acute Assessment and Plan: * Current BUN/Cr 18/1.60 * Baseline appears to be 1.10-1.50 * Trend labs * Appears to be at baseline * Avoid nephrotoxic medications * Consider urine studies (5) Paroxysmal atrial fibrillation: Code(s): I48.0 - Paroxysmal atrial fibrillation Status: Acute Assessment and Plan: * Currently A paced per EKG * Tele monitor * Continue metoprolol * Hold Eliquis in anticipation of thoracentesis. Time Spent With Patient Time with patient: Greater than 35 minutes Subjective Date/time seen: 07/20/22944 Interval history: 07/20/22944 Patient was lying in bed. Patient was saying that he feels pretty well he was concerned about hematoma in his right elbow. It appears that he had an IV started there and it did not go well. There is no warmth or redness to it it seems very stable. He also is concerned about the dribbling and he states that he is fully emptying however he feels like there is a little left in his penis and that it just is dribbling out and will stop. He states that he does have some shortness of breath with walking however he did state that it is better worse with how fast he is walking. He currently denies any chest pain, nausea, vomiting, diarrhea, constipation, weakness or fatigue. He is anxious about getting his thoracentesis completed. He does state that he is not short of breath however when he talks using kind of here his shortness of breath. However he does look comfortable on does not seem to be in any distress at this time. 07/19/22? 22:29 77-year-old male past medical history of CAD ([facility] 05/2020 showing 60% lad stenosis), heart failure reduced ejection fraction (04/2022 TTE LVEF 50%, DD, mild LV enlargement), status post ppm, history of ventricular tachyarrhythmia now status post AICD April/2022, paroxysmal AFib on Eliquis, BPH, HTN/HLD.? Presents with dyspnea on exertion that started last Saturday.? Patient was recently admitted at [place] 06/2022 for heart failure exacerbation and pneumonia.? He had a large right pleural effusion gifty
--- NOTE | 2022-07-20 09:45 | PM.IMPN ---
Progress Note: A&P Assessment and Plan (1) Pleural effusion: Code(s): J90 - Pleural effusion, not elsewhere classified Status: Acute Assessment and Plan: Recurrent right pleural effusion, appears to have began in June. 04/2022 chest x-ray does not show right pleural effusion. 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 BNP is 7260 IV lasix 40mg IV daily continued, titrate as indicated Daily weights Strict I&Os Trend output (3) CAD (coronary artery disease): Code(s): I25.10 - Atherosclerotic heart disease of [place] coronary artery without angina pectoris Status: Acute Assessment and Plan: Continue aspirin and Zetia No notable chest pain (4) Chronic kidney disease, stage 3: Code(s): N18.3 - Chronic kidney disease, stage 3 (moderate) Status: Acute Assessment and Plan: Current BUN/Cr 18/1.60 Baseline appears to be 1.10-1.50 Trend labs Appears to be at baseline Avoid nephrotoxic medications Consider urine studies (5) Paroxysmal atrial fibrillation: Code(s): I48.0 - Paroxysmal atrial fibrillation Status: Acute Assessment and Plan: Currently A paced per EKG Tele monitor Continue metoprolol Hold Eliquis in anticipation of thoracentesis. Time Spent With Patient Time with patient: Greater than 35 minutes Subjective Date/time seen: 07/20/22944 Interval history: 07/20/22944 Patient was lying in bed. Patient was saying that he feels pretty well he was concerned about hematoma in his right elbow. It appears that he had an IV started there and it did not go well. There is no warmth or redness to it it seems very stable. He also is concerned about the dribbling and he states that he is fully emptying however he feels like there is a little left in his penis and that it just is dribbling out and will stop. He states that he does have some shortness of breath with walking however he did state that it is better worse with how fast he is walking. He currently denies any chest pain, nausea, vomiting, diarrhea, constipation, weakness or fatigue. He is anxious about getting his thoracentesis completed. He does state that he is not short of breath however when he talks using kind of here his shortness of breath. However he does look comfortable on does not seem to be in any distress at this time. 07/19/22? 22:29 77-year-old male past medical history of CAD ([facility] 05/2020 showing 60% lad stenosis), heart failure reduced ejection fraction (04/2022 TTE LVEF 50%, DD, mild LV enlargement), status post ppm, history of ventricular tachyarrhythmia now status post AICD April/2022, paroxysmal AFib on Eliquis, BPH, HTN/HLD.? Presents with dyspnea on exertion that started last Saturday.? Patient was recently admitted at [place] 06/2022 for heart failure exacerbation and pneumonia.? He had a large right pleural effusion that was drained, 1.5 L out on the right side.? 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 He states he had 2 days of antibiotics and then did not receive anymore.? He recently saw his PCP and was started on cefdinir for 10 days, which he has taken 1 day of.? He denies any fevers or chills, however had a productive cough of clear sputum with intermittent pink sputum that started today.? Denies chest pain.? Denies nausea/vomiting, diarrhea/constipation, hematuria/dysuria.? Denies worsening lo
[2022-07-20 12:50] LABS: Pleural fluid source Pleural fluid
[2022-07-20 12:51] LABS: Appearance Pleural Fluid Cloudy (Clear); Color Pleural Fluid Yellow (Colorless)
[2022-07-20 12:52] LABS: Lymphocytes Pleural Fluid 68 %; Macrophages Pleural Fluid 2 %; Monocytes Pleural Fluid 16 %; Neutrophils Pleural Fluid 14 % (0-25)
[2022-07-20] MEDS: AMIODARONE HCL 200 MG TABLET 400 MG BY MOUTH (14:00)
[2022-07-20] MEDS: AZITHROMYCIN 250 MG TABLET PO (14:00)
[2022-07-20] MEDS: EZETIMIBE 10 MG TABLET PO (14:00)
[2022-07-20] MEDS: FUROSEMIDE INJ 40 MG/4 ML VIAL IV PUSH (14:01)
[2022-07-20] MEDS: METOPROLOL TARTRATE 50 MG TAB PO (20:43)
[2022-07-21] VITALS (7 sets, daily range): BP systolic 116–153; BP diastolic 76–81; PULSE 60–67; RESP 12–20; TEMP 36.4–37.1; O2SAT 94–98
[2022-07-21 05:38] LABS: Eosinophils Absolute Auto 0.1 K/mm3 (0-0.3); Eosinophils Percent Auto 3.1 % (0-4.4); Hemoglobin 12.6 g/dL (14.0-18.0); Immature Granulocyte Absolute 0.01 K/mm3 (0.00-0.031); Immature Granulocyte Percent A 0.2 % (0-0.5); Lymphocytes Absolute Auto 0.86 K/mm3 (0.9-3.2); Lymphocytes Percent Auto 20.8 % (18.3-44.2); Mean Corpuscular HGB Conc 32.3 g/dl (32-36); Mean Corpuscular Volume 96.1 fl (80-100); Mean Platelet Volume 9.7 fl (7.4-10.4); Monocytes Absolute Auto 0.4 K/mm3 (0.1-0.6); Monocytes Percent Auto 10.1 % (2.6-8.5); Neutrophils Absolute Auto 2.7 K/mm3 (1.3-6.7); Neutrophils Percent Auto 64.8 % (45.5-73.1); Platelet Count Result 190 k/mm3 (150-375); Red Blood Count 4.06 M/mm3 (4.6-6.20); Red Cell Distribution Width 14.8 % (11.5-14.5); White Blood Count 4.1 K/mm3 (4.5-10.0)
[2022-07-21 05:43] LABS: Anion Gap 7 mmol/L (8-16); Blood Urea Nitrogen 19 mg/dL (9-20); Calcium 7.7 mg/dL (8.4-10.2); Carbon Dioxide 27 mmol/L (22-30); Chloride 104 mmol/L (98-107); Estimated CRCL calculation 42 ml/min; Estimated Glomerular Filt Rate 42; Glucose 92 mg/dL (65-110); Magnesium 1.9 mg/dL (1.6-2.3); Potassium 3.8 mmol/L (3.4-5.0); Sodium 138 mmol/L (137-145)
[2022-07-21] MEDS: AZITHROMYCIN 250 MG TABLET PO (09:36)
[2022-07-21] MEDS: AMIODARONE HCL 200 MG TABLET 400 MG BY MOUTH (09:36)
[2022-07-21] MEDS: FUROSEMIDE INJ 40 MG/4 ML VIAL IV PUSH ×2 (09:36→17:36)
[2022-07-21] MEDS: EZETIMIBE 10 MG TABLET PO (09:36)
[2022-07-21] MEDS: APIXABAN 5 MG TABLET PO ×2 (09:37→17:37)
--- NOTE | 2022-07-21 10:00 | PM.IMPN ---
Progress Note: A&P Assessment and Plan (1) Pleural effusion: Code(s): J90 - Pleural effusion, not elsewhere classified Status: Acute Assessment and Plan: Recurrent right pleural effusion, appears to have began in June. 04/2022 chest x-ray does not show right pleural effusion. 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 BNP is 7260 IV lasix 40mg IV daily continued, titrate as indicated Daily weights Strict I&Os Trend output (3) CAD (coronary artery disease): Code(s): I25.10 - Atherosclerotic heart disease of [place] coronary artery without angina pectoris Status: Acute Assessment and Plan: Continue aspirin and Zetia No notable chest pain (4) Chronic kidney disease, stage 3: Code(s): N18.3 - Chronic kidney disease, stage 3 (moderate) Status: Acute Assessment and Plan: Current BUN/Cr 19/1.60 Baseline appears to be 1.10-1.50 Trend labs Appears to be at baseline Avoid nephrotoxic medications Consider urine studies (5) Paroxysmal atrial fibrillation: Code(s): I48.0 - Paroxysmal atrial fibrillation Status: Acute Assessment and Plan: Currently A paced per EKG Tele monitor Continue metoprolol Resume Eliquis Time Spent With Patient Time with patient: Greater than 35 minutes Subjective Date/time seen: 07/21/22 10:00 Interval history: 07/21/22 1000 Patient was sitting in bed patient states that he feels better is breathing better. He denies any chest pain, nausea, vomiting diarrhea, constipation. He has been eating okay. He did ask lot of questions about his current health status. he did state that he was on hydrochlorothiazide and furosemide about a year ago every was taken off of it. He also stated that they were treating with furosemide at the last visit at [facility] however he was never sent home with any. He did ask about how to keep the fluid off. Education about heart failure was given to the patient patient understood and verbalized understanding. 07/20/22 0945 Patient was lying in bed. Patient was saying that he feels pretty well he was concerned about hematoma in his right elbow. It appears that he had an IV started there and it did not go well. There is no warmth or redness to it it seems very stable. He also is concerned about the dribbling and he states that he is fully emptying however he feels like there is a little left in his penis and that it just is dribbling out and will stop. He states that he does have some shortness of breath with walking however he did state that it is better worse with how fast he is walking. He currently denies any chest pain, nausea, vomiting, diarrhea, constipation, weakness or fatigue. He is anxious about getting his thoracentesis completed. He does state that he is not short of breath however when he talks using kind of here his shortness of breath. However he does look comfortable on does not seem to be in any distress at this time. 07/19/22? 22:29 77-year-old male past medical history of CAD ([facility] 05/2020 showing 60% lad stenosis), heart failure reduced ejection fraction (04/2022 TTE LVEF 50%, DD, mild LV enlargement), status post ppm, history of ventricular tachyarrhythmia now
--- NOTE | 2022-07-21 10:00 | P.PNIM_ITS ---
Progress Note: A&P Assessment and Plan (1) Pleural effusion: Code(s): J90 - Pleural effusion, not elsewhere classified Status: Acute Assessment and Plan: * Recurrent right pleural effusion, appears to have began in June. * 04/2022 chest x-ray does not show right pleural effusion. * Appears that 1.5L drained in June * Chest CT indicated large right pleural effusion * Thoracentesis drained 1.2 L * Gram stain shows many WBC no organisms seen * Fluid was dark yellow with high pH, 14 neutrophils, 68 lymphocytes, 16 monocytes, 2 macrocytes * Labs ordered * Supplement oxygen if indicated (2) Nonischemic congestive cardiomyopathy: Code(s): I42.0 - Dilated cardiomyopathy Status: Acute Assessment and Plan: * CT chest showing mild pulmonary vascular congestion * No exacerbation noted * Pleural effusion drained * Echocardiogram EF of 45-50% with left diastolic dysfunction undeterminable * 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 * BNP is 7260 * IV lasix 40mg IV daily continued, titrate as indicated * Daily weights * Strict I&Os * Trend output (3) CAD (coronary artery disease): Code(s): I25.10 - Atherosclerotic heart disease of [place] coronary artery without angina pectoris Status: Acute Assessment and Plan: * Continue aspirin and Zetia * No notable chest pain (4) Chronic kidney disease, stage 3: Code(s): N18.3 - Chronic kidney disease, stage 3 (moderate) Status: Acute Assessment and Plan: * Current BUN/Cr 19/1.60 * Baseline appears to be 1.10-1.50 * Trend labs * Appears to be at baseline * Avoid nephrotoxic medications * Consider urine studies (5) Paroxysmal atrial fibrillation: Code(s): I48.0 - Paroxysmal atrial fibrillation Status: Acute Assessment and Plan: * Currently A paced per EKG * Tele monitor * Continue metoprolol * Resume Eliquis Time Spent With Patient Time with patient: Greater than 35 minutes Subjective Date/time seen: 07/21/22 10:00 Interval history: 07/21/22 1000 Patient was sitting in bed patient states that he feels better is breathing better. He denies any chest pain, nausea, vomiting diarrhea, constipation. He has been eating okay. He did ask lot of questions about his current health status. he did state that he was on hydrochlorothiazide and furosemide about a year ago every was taken off of it. He also stated that they were treating with furosemide at the last visit at [facility] however he was never sent home with any. He did ask about how to keep the fluid off. Education about heart failure was given to the patient patient understood and verbalized understanding. 07/20/22 9656 Patient was lying in bed. Patient was saying that he feels pretty well he was concerned about hematoma in his right elbow. It appears that he had an IV started there and it did not go well. There is no warmth or redness to it it seems very stable. He also is concerned about the dribbling and he states that he is fully emptying however he feels like there is a little left in his penis and that it just is dribbling out and will stop. He states that he does have some shortness of breath with walking however he did state that it is better worse with how fast he is walking. He currently denies any chest pain, nausea, vomiting, diarrhea, constipation, weakness or fatigu
[2022-07-21] MEDS: ASPIRIN 81 MG ENTERIC TABLET PO (20:10)
[2022-07-21] MEDS: METOPROLOL TARTRATE 50 MG TAB PO (20:10)
[2022-07-22] VITALS (12 sets, daily range): BP systolic 95–145; BP diastolic 45–89; PULSE 59–107; RESP 12–20; TEMP 36.1–36.9; O2SAT 93–98
[2022-07-22 05:12] LABS: Eosinophils Absolute Auto 0.2 K/mm3 (0-0.3); Eosinophils Percent Auto 4.1 % (0-4.4); Hematocrit 38.2 % (42.0-52.0); Hemoglobin 12.5 g/dL (14.0-18.0); Immature Granulocyte Absolute 0.01 K/mm3 (0.00-0.031); Immature Granulocyte Percent A 0.3 % (0-0.5); Lymphocytes Absolute Auto 0.91 K/mm3 (0.9-3.2); Lymphocytes Percent Auto 23.5 % (18.3-44.2); Mean Corpuscular HGB Conc 32.7 g/dl (32-36); Mean Corpuscular Hemoglobin 30.9 pg (26-34); Mean Corpuscular Volume 94.3 fl (80-100); Mean Platelet Volume 9.8 fl (7.4-10.4); Monocytes Absolute Auto 0.4 K/mm3 (0.1-0.6); Monocytes Percent Auto 10.3 % (2.6-8.5); Neutrophils Absolute Auto 2.4 K/mm3 (1.3-6.7); Neutrophils Percent Auto 60.8 % (45.5-73.1); Platelet Count Result 169 k/mm3 (150-375); Red Blood Count 4.05 M/mm3 (4.6-6.20); Red Cell Distribution Width 14.6 % (11.5-14.5); White Blood Count 3.9 K/mm3 (4.5-10.0)
[2022-07-22 05:23] LABS: Alanine Aminotransferase 27 U/L (6-50); Albumin Level 2.8 g/dL (3.5-5.1); Alkaline Phosphatase 83 U/L (38-126); Anion Gap 8 mmol/L (8-16); Aspartate Amino Transferase 33 U/L (17-59); Bilirubin,Total 0.7 mg/dL (0.2-1.3); Blood Urea Nitrogen 22 mg/dL (9-20); Calcium 7.6 mg/dL (8.4-10.2); Carbon Dioxide 26 mmol/L (22-30); Chloride 103 mmol/L (98-107); Estimated CRCL calculation 39 ml/min; Estimated Glomerular Filt Rate 39; Glucose 91 mg/dL (65-110); Magnesium 1.8 mg/dL (1.6-2.3); Potassium 3.5 mmol/L (3.4-5.0); Sodium 137 mmol/L (137-145)
--- NOTE | 2022-07-22 09:00 | P.PNIM_ITS ---
Progress Note: A&P Assessment and Plan (1) Pleural effusion: Code(s): J90 - Pleural effusion, not elsewhere classified Status: Acute Assessment and Plan: * Recurrent right pleural effusion, appears to have began in June. * 04/2022 chest x-ray does not show right pleural effusion. * Appears that 1.5L drained in June * Chest CT indicated large right pleural effusion * Thoracentesis drained 1.2 L * Gram stain shows many WBC no organisms seen * Fluid was dark yellow with high pH, 14 neutrophils, 68 lymphocytes, 16 monocytes, 2 macrocytes * Labs ordered * Supplement oxygen if indicated (2) Nonischemic congestive cardiomyopathy: Code(s): I42.0 - Dilated cardiomyopathy Status: Acute Assessment and Plan: * CT chest showing mild pulmonary vascular congestion * No exacerbation noted * Pleural effusion drained * Echocardiogram EF of 45-50% with left diastolic dysfunction undeterminable * 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 It appears that in April he was experiencing dizziness, and it was recommended to stop the Entresto, at which time he was started back on Amiodarone, and was also placed on metoprolol. Patient reports that he was also on Lasix at one time, but it does not seem to appear dating as far back as 12/2019. It does appear that upon DC from [facility], patient was determined to have heart failure with a reduced EF. At that time he was also noted to have a pleural effusion, which was drained. Will send patient out on Lasix as it seems that the recurrent pleural effusion is more than likely related to the heart failure. (3) CHF (congestive heart failure): Code(s): I50.9 - Heart failure, unspecified Status: Acute Assessment and Plan: * No acute exacerbation * See above (4) CAD (coronary artery disease): Code(s): I25.10 - Atherosclerotic heart disease of [place] coronary artery without angina pectoris Status: Acute Assessment and Plan: * Continue aspirin and Zetia * No notable chest pain (5) Chronic kidney disease, stage 3: Code(s): N18.3 - Chronic kidney disease, stage 3 (moderate) Status: Acute Assessment and Plan: * Current BUN/Cr 22/1.70 * Repeat Cr 1.90 * Baseline appears to be 1.40-1.60 * Trend labs * Appears to be at baseline * Avoid nephrotoxic medications * Consider urine studies * 250ml of fluids given, due to the hypotension and tachycardia Baseline is a bit undeterminable. Looking through the history, it appears that the creatinine is all over the board, and has been as low as 1.10. Currently it is 1.70. It appears that the patient really has an average of 1.5. The elevation is probably related to the IV lasix, however, will have patient repeat labs in 1 week, and follow up with primary for further instructions. (6) Paroxysmal atrial fibrillation: Code(s): I48.0 - Paroxysmal atrial fibrillation Status: Acute Assessment and Plan: * Currently A paced per EKG * Tele monitor * Continue metoprolol * Resume Eliquis Time Spent With Patient Time with patient: Greater than 35 minutes Subjective Date/time seen:
--- NOTE | 2022-07-22 09:00 | PM.IMPN ---
Progress Note: A&P Assessment and Plan (1) Pleural effusion: Code(s): J90 - Pleural effusion, not elsewhere classified Status: Acute Assessment and Plan: Recurrent right pleural effusion, appears to have began in June. 04/2022 chest x-ray does not show right pleural effusion. 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 It appears that in April he was experiencing dizziness, and it was recommended to stop the Entresto, at which time he was started back on Amiodarone, and was also placed on metoprolol. Patient reports that he was also on Lasix at one time, but it does not seem to appear dating as far back as 12/2019. It does appear that upon DC from [facility], patient was determined to have heart failure with a reduced EF. At that time he was also noted to have a pleural effusion, which was drained. Will send patient out on Lasix as it seems that the recurrent pleural effusion is more than likely related to the heart failure. (3) CHF (congestive heart failure): Code(s): I50.9 - Heart failure, unspecified Status: Acute Assessment and Plan: No acute exacerbation See above (4) CAD (coronary artery disease): Code(s): I25.10 - Atherosclerotic heart disease of [place] coronary artery without angina pectoris Status: Acute Assessment and Plan: Continue aspirin and Zetia No notable chest pain (5) Chronic kidney disease, stage 3: Code(s): N18.3 - Chronic kidney disease, stage 3 (moderate) Status: Acute Assessment and Plan: Current BUN/Cr 22/1.70 Repeat Cr 1.90 Baseline appears to be 1.40-1.60 Trend labs Appears to be at baseline Avoid nephrotoxic medications Consider urine studies 250ml of fluids given, due to the hypotension and tachycardia Baseline is a bit undeterminable. Looking through the history, it appears that the creatinine is all over the board, and has been as low as 1.10. Currently it is 1.70. It appears that the patient really has an average of 1.5. The elevation is probably related to the IV lasix, however, will have patient repeat labs in 1 week, and follow up with primary for further instructions. (6) Paroxysmal atrial fibrillation: Code(s): I48.0 - Paroxysmal atrial fibrillation Status: Acute Assessment and Plan: Currently A paced per EKG Tele monitor Continue metoprolol Resume Eliquis Time Spent With Patient Time with patient: Greater than 35 minutes Subjective Date/time seen: 07/22/22 09:00 Interval history: 07/22/22 0900 Patient is doing ok. He seems to be doing well. Renal function is worsening. He denies any chest pain, shortness of breath, weakness, constipation, fatigue, nausea, or vomiting. It was reported in the afternoon that the patient was getting light headed and dizzy. Rechecked renal function which is worse than this morning. Fluids bolus was given due to low blood pressure, and some tachycardia. Reevaluated at 1500 patient stated that he is feeling better, and
[2022-07-22] MEDS: MAGNESIUM SULF 2 GM/WATER 50ML 2 GM/50 ML BAG IVPB (09:18)
[2022-07-22] MEDS: AZITHROMYCIN 250 MG TABLET PO (09:18)
[2022-07-22] MEDS: AMIODARONE HCL 200 MG TABLET 400 MG BY MOUTH (09:18)
[2022-07-22] MEDS: EZETIMIBE 10 MG TABLET PO (09:18)
[2022-07-22] MEDS: APIXABAN 5 MG TABLET PO ×2 (09:18→17:15)
[2022-07-22] MEDS: SODIUM CHLORIDE 0.9% IV 500 ML IV CONT (13:52)
[2022-07-22 15:11] LABS: Alanine Aminotransferase 27 U/L (6-50); Alkaline Phosphatase 84 U/L (38-126); Anion Gap 6 mmol/L (8-16); Aspartate Amino Transferase 35 U/L (17-59); Bilirubin,Total 0.6 mg/dL (0.2-1.3); Blood Urea Nitrogen 24 mg/dL (9-20); Calcium 8.2 mg/dL (8.4-10.2); Carbon Dioxide 28 mmol/L (22-30); Chloride 101 mmol/L (98-107); Estimated CRCL calculation 35 ml/min; Estimated Glomerular Filt Rate 35; Glucose 86 mg/dL (65-110); Potassium 3.5 mmol/L (3.4-5.0); Sodium 135 mmol/L (137-145)
[2022-07-22] MEDS: METOPROLOL TARTRATE 50 MG TAB PO (20:01)
[2022-07-22] MEDS: ASPIRIN 81 MG ENTERIC TABLET PO (20:02)
[2022-07-23] VITALS (8 sets, daily range): BP systolic 114–146; BP diastolic 61–88; PULSE 59–66; RESP 16–20; TEMP 36.3–36.6; O2SAT 96–98
[2022-07-23 05:58] LABS: Basophils Absolute Auto 0.1 K/mm3 (0.0-0.1); Basophils Percent Auto 1.2 % (0.2-1.2); Eosinophils Absolute Auto 0.2 K/mm3 (0-0.3); Hematocrit 37.9 % (42.0-52.0); Hemoglobin 12.2 g/dL (14.0-18.0); Immature Granulocyte Absolute 0.01 K/mm3 (0.00-0.031); Immature Granulocyte Percent A 0.2 % (0-0.5); Lymphocytes Percent Auto 23.8 % (18.3-44.2); Mean Corpuscular HGB Conc 32.2 g/dl (32-36); Mean Corpuscular Hemoglobin 30.9 pg (26-34); Mean Corpuscular Volume 95.9 fl (80-100); Mean Platelet Volume 9.6 fl (7.4-10.4); Monocytes Absolute Auto 0.4 K/mm3 (0.1-0.6); Neutrophils Absolute Auto 2.6 K/mm3 (1.3-6.7); Neutrophils Percent Auto 60.8 % (45.5-73.1); Platelet Count Result 149 k/mm3 (150-375); Red Blood Count 3.95 M/mm3 (4.6-6.20); Red Cell Distribution Width 14.6 % (11.5-14.5); White Blood Count 4.2 K/mm3 (4.5-10.0)
[2022-07-23 06:09] LABS: Alanine Aminotransferase 25 U/L (6-50); Albumin Level 2.7 g/dL (3.5-5.1); Alkaline Phosphatase 76 U/L (38-126); Anion Gap 6 mmol/L (8-16); Aspartate Amino Transferase 32 U/L (17-59); Bilirubin,Total 0.7 mg/dL (0.2-1.3); Blood Urea Nitrogen 24 mg/dL (9-20); Calcium 7.5 mg/dL (8.4-10.2); Carbon Dioxide 27 mmol/L (22-30); Chloride 103 mmol/L (98-107); Estimated CRCL calculation 42 ml/min; Estimated Glomerular Filt Rate 42; Glucose 81 mg/dL (65-110); Magnesium 2.2 mg/dL (1.6-2.3); Potassium 3.6 mmol/L (3.4-5.0); Sodium 136 mmol/L (137-145)
[2022-07-23] MEDS: FUROSEMIDE 20 MG TABLET PO (08:39)
[2022-07-23] MEDS: APIXABAN 5 MG TABLET PO (08:39)
[2022-07-23] MEDS: AZITHROMYCIN 250 MG TABLET PO (08:39)
[2022-07-23] MEDS: EZETIMIBE 10 MG TABLET PO (08:40)
[2022-07-23] MEDS: AMIODARONE HCL 200 MG TABLET BY MOUTH (08:40)
--- NOTE | 2022-07-23 10:15 | PM.DS ---
DS: Admitting Diagnosis Discharge Date 07/23/22 1015 Admitting Diagnosis right-sided pleural effusion, chronic CHF, chronic CKD DS: Discharge Diagnosis Discharge Diagnosis (1) Pleural effusion: Code(s): J90 - Pleural effusion, not elsewhere classified Status: Acute Assessment and Plan: Recurrent right pleural effusion, appears to have began in June. 04/2022 chest x-ray does not show right pleural effusion. 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 It appears that in April he was experiencing dizziness, and it was recommended to stop the Entresto, at which time he was started back on Amiodarone, and was also placed on metoprolol. Patient reports that he was also on Lasix at one time, but it does not seem to appear dating as far back as 12/2019. It does appear that upon DC from [facility], patient was determined to have heart failure with a reduced EF. At that time he was also noted to have a pleural effusion, which was drained. Will send patient out on Lasix as it seems that the recurrent pleural effusion is more than likely related to the heart failure. (3) CHF (congestive heart failure): Code(s): I50.9 - Heart failure, unspecified Status: Acute Assessment and Plan: No acute exacerbation See above (4) CAD (coronary artery disease): Code(s): I25.10 - Atherosclerotic heart disease of [place] coronary artery without angina pectoris Status: Acute Assessment and Plan: Continue aspirin and Zetia No notable chest pain (5) Chronic kidney disease, stage 3: Code(s): N18.3 - Chronic kidney disease, stage 3 (moderate) Status: Acute Assessment and Plan: Current BUN/Cr 23/1.50 Baseline appears to be 1.40-1.60 Trend labs Appears to be at baseline Avoid nephrotoxic medications Consider urine studies Baseline is a bit undeterminable. Looking through the history, it appears that the creatinine is all over the board, and has been as low as 1.10. Currently it is 1.50. It appears that the patient really has an average of 1.5. The elevation is probably related to the IV lasix, however, will have patient repeat labs in 1 week, and follow up with primary for further instructions. (6) Paroxysmal atrial fibrillation: Code(s): I48.0 - Paroxysmal atrial fibrillation Status: Acute Assessment and Plan: Currently A paced per EKG Tele monitor Continue metoprolol Resume Gloria DS: Summary Hospital Course Hospital Course: patient is a 77-year-old male with past medical history of CAD, CKD, pleural effusion who presented to the ED with complaints of shortness of breath. Upon arrival patient was taken for CT which did show a large right pleural effusion and mild pulmonary congestion. Patient was started on IV Lasix and thoracenteses was performed. Thoracentesis to take 1200 mL of fluid off. Labs do not indicate any type of infection. It does appear that the history of this is relate
--- NOTE | 2022-07-23 10:15 | P.DS_ITS ---
DS: Admitting Diagnosis Discharge Date 07/23/22 1015 Admitting Diagnosis right-sided pleural effusion, chronic CHF, chronic CKD DS: Discharge Diagnosis Discharge Diagnosis (1) Pleural effusion: Code(s): J90 - Pleural effusion, not elsewhere classified Status: Acute Assessment and Plan: * Recurrent right pleural effusion, appears to have began in June. * 04/2022 chest x-ray does not show right pleural effusion. * Appears that 1.5L drained in June * Chest CT indicated large right pleural effusion * Thoracentesis drained 1.2 L * Gram stain shows many WBC no organisms seen * Fluid was dark yellow with high pH, 14 neutrophils, 68 lymphocytes, 16 monocytes, 2 macrocytes * Labs ordered * Supplement oxygen if indicated (2) Nonischemic congestive cardiomyopathy: Code(s): I42.0 - Dilated cardiomyopathy Status: Acute Assessment and Plan: * CT chest showing mild pulmonary vascular congestion * No exacerbation noted * Pleural effusion drained * Echocardiogram EF of 45-50% with left diastolic dysfunction undeterminable * 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 It appears that in April he was experiencing dizziness, and it was recommended to stop the Entresto, at which time he was started back on Amiodarone, and was also placed on [facility]rolol[facility] also [facility] Lasix at one time, but it does not seem to appear dating as far back as 12/2019. It does appear that upon DC from [facility], patient was determined to have heart failure with a reduced EF. At that time he was also noted to have a pleural effusion, which was drained. Will send patient out on Lasix as it seems that the recurrent pleural effusion is more than likely related to the heart failure. (3) CHF (congestive heart failure): Code(s): I50.9 - Heart failure, unspecified Status: Acute Assessment and Plan: * No acute exacerbation * See above (4) CAD (coronary artery disease): Code(s): I25.10 - Atherosclerotic heart disease of [place] coronary artery without angina pectoris Status: Acute Assessment and Plan: * Continue aspirin and Zetia * No notable chest pain (5) Chronic kidney disease, stage 3: Code(s): N18.3 - Chronic kidney disease, stage 3 (moderate) Status: Acute Assessment and Plan: * Current BUN/Cr 23/1.50 * Baseline appears to be 1.40-1.60 * Trend labs * Appears to be at baseline * Avoid nephrotoxic medications * Consider urine studies Baseline is a bit undeterminable. Looking through the history, it appears that the creatinine is all over the board, and has been as low as 1.10. Currently it is 1.50. It appears that the patient really has an average of 1.5. The elevat ion is probably related to the IV lasix, however, will have patient repeat labs in 1 week, and follow up with primary for further instructions. (6) Paroxysmal atrial fibrillation: Code(s): I48.0 - Paroxysmal atrial fibrillation Status: Acute Assessment and Plan: * Currently A paced per EKG * Tele monitor * Continue metoprolol * Resume Eliraymond
[2022-07-23 10:31] LABS: Appearance Urine Clear (Clear); Bilirubin Urine 1+ (Negative); Blood Urine Negative (Negative); Color Urine Amber (Yellow); Glucose Urine UA Negative (Negative); Ketones Urine Negative (Negative); Leukocyte Esterase Ur Negative LEU/UL (Negative); Nitrate Urine Negative (Negative); Protein Urine Negative (Negative); Specific Grav Ur 1.025 (1.001-1.035); pH Urine 5.5 (5.0-9.0)
[2022-07-23 10:38] LABS: Creatinine Urine 266.7 mg/dL; Sodium Urine Random 81 meq/L; Urea Random Urine 1186 MG/DL
[2022-07-23 10:41] LABS: Add Urine Microscopic? YES; Mucus Urine Rare /lpf; RBC Urine 0-2 /hpf (0-2)
[2022-07-23 12:36] LABS: Alanine Aminotransferase 24 U/L (6-50); Albumin Level 2.8 g/dL (3.5-5.1); Alkaline Phosphatase 74 U/L (38-126); Anion Gap 7 mmol/L (8-16); Aspartate Amino Transferase 34 U/L (17-59); Bilirubin,Total 0.7 mg/dL (0.2-1.3); Blood Urea Nitrogen 23 mg/dL (9-20); Calcium 7.9 mg/dL (8.4-10.2); Carbon Dioxide 27 mmol/L (22-30); Chloride 101 mmol/L (98-107); Estimated CRCL calculation 44 ml/min; Estimated Glomerular Filt Rate 45; Glucose 113 mg/dL (65-110); Potassium 3.4 mmol/L (3.4-5.0); Sodium 135 mmol/L (137-145)
[2022-07-23 20:28] LABS: Glucose Pleural Fluid 90 mg/dL; LDH Pleural Fluid 85 U/L; Total Protein Pleural Fluid <3.0 g/dL
[2022-07-25 15:27] LABS: Osmolality, Urine 704 mOsm/kg (50-1200)
== END 2022-07-23 14:10 | disposition home or self-care (01) ==
LOC: ANHED 18:21 → ANH2MED 22:33
PROVIDERS: Internal Medicine; Admitting Provider Student in an Organized Health Care Education/Training Program; Emergency Provider Emergency Medicine; PCP Internal Medicine; Visit Provider Nurse Practitioner
DX: J90 Pleural effusion, not elsewhere classified (principal); I42.0 Dilated cardiomyopathy; I13.0 Hypertensive heart and chronic kidney disease with heart failure and stage 1 through stage 4 chronic kidney disease, or unspecified chronic kidney disease; I50.40 Unspecified combined systolic (congestive) and diastolic (congestive) heart failure; N18.30 Chronic kidney disease, stage 3 unspecified; R09.89 Other specified symptoms and signs involving the circulatory and respiratory systems; I25.10 Atherosclerotic heart disease of native coronary artery without angina pectoris; E78.5 Hyperlipidemia, unspecified; L76.32 Postprocedural hematoma of skin and subcutaneous tissue following other procedure; R06.00 Dyspnea, unspecified; J81.1 Chronic pulmonary edema; J98.11 Atelectasis; Z95.810 Presence of automatic (implantable) cardiac defibrillator; Z87.891 Personal history of nicotine dependence; Z20.822 Contact with and (suspected) exposure to COVID-19; Z79.01 Long term (current) use of anticoagulants; Z79.82 Long term (current) use of aspirin; Z79.899 Other long term (current) drug therapy; Z82.49 Family history of ischemic heart disease and other diseases of the circulatory system; Z80.1 Family history of malignant neoplasm of trachea, bronchus and lung
CPT/HCPCS: 32555; 36415; 71045; 71046; 71275; 80048; 80053; 81001; 82570; 82945; 83615; 83735; 83880; 83935; 83986; 84155; 84157; 84300; 84540; 85025; 85610; 85730; 87070; 87075; 87086; 87205; 88108; 88184; 88305; 88342; 89051; 93005; 94640; 96361; 96365; 96374; 96375; 96376; 99285; A9270; C9803; G0378; J1940; J3475; J7040; Q9967; U0003; U0005

== ENCOUNTER 2022-08-09 10:25 | Outpatient (CLI) | payer OTHER, SELFPAY ==
--- NOTE | ~2022-08-09 | XR_ITS ---
EXAMINATION: XR chest 2V DATE: 08/09/2022 10:46 INDICATION: Pleural effusion, not elsewhere classified. TECHNIQUE: Frontal and lateral views of the chest were obtained. COMPARISON: Chest single view 07/22/2022, chest CT 07/19/2022 FINDINGS: There are moderate-sized right and small left pleural effusions. There are airspace opaciti es at the lung bases. No pneumothorax. Cardiomegaly is noted. There is a left chest pacer/defibrillat or with leads in right atrium and right ventricle, and coronary sinus. IMPRESSION: 1. Moderate-sized right and small left pleural effusions with interval worsening on the right. 2. Airspace opacities at the lung bases, consistent with atelectasis or less likely pneumonia. 3. Cardiomegaly. Reviewed, dictated and finalized at location A. IMPRESSION: 1. Moderate-sized right and small left pleural effusions with interval worsenin g on the right. 2. Airspace opacities at the lung bases, consistent with atelectasis or less li [place] pneumonia. 3. Cardiomegaly.
== END 2022-08-09 10:26 | disposition home or self-care (01) ==
PROVIDERS: PCP Internal Medicine; Visit Provider Internal Medicine
DX: J90 Pleural effusion, not elsewhere classified (principal); I51.7 Cardiomegaly; R91.8 Other nonspecific abnormal finding of lung field
CPT/HCPCS: 71046

== ENCOUNTER 2022-08-12 14:11 | Emergency (ER) | payer OTHER, SELFPAY ==
--- NOTE | ~2022-08-12 | XR_ITS ---
EXAMINATION: XR chest 2V Exam Date/Time: 08/12/2022 15:22 CDT HISTORY: SOA Comparison: 08/09/2020. RESULT: Lines, tubes, and devices: Left chest pacer/defibrillator, with intact leads. Lungs and pleura: Moderate right costophrenic angle blunting and basilar atelectasis/consolidation, greater on the right. Emphysematous and senescent change. Cardiomediastinal silhouette: Stable. Other: No acute osseous or upper abdominal finding. IMPRESSION: Stable moderate right pleural effusion. Stable bibasilar pulmonary opacities. Reviewed, dictated and finalized at location K.
[2022-08-12 14:50] VITALS: BP 143/94; PULSE 63; RESP 18; O2SAT 99
[2022-08-12 14:53] VITALS: O2SAT 100
--- NOTE | 2022-08-12 15:13 | ED.SOB ---
HPI - SOB/Dyspnea General Chief Complaint: Shortness of Breath/Dyspnea Stated Complaint: Severe SOB of breath Time Seen by Provider: 08/12/22 14:14 History of Present Illness HPI Narrative: Patient is a 77-year-old male who presents ER with reports of shortness of breath. Reports he had an x-ray on 08/09/2022 that showed a moderate sized pleural effusion. Reports he is admitted to [facility] at 8 weeks ago with legionnaires pneumonia and underwent thoracentesis. Reports shortness of breath is worse when he lays backwards. He tried to schedule a thoracentesis 2 days ago but they told him he cannot be seen for a week. He then tried calling his PCP but the exchange did not have a doctor for the weekend. He opted to come here because does not know what else to do. He does take low-dose Lasix. He is on a blood thinner. He has no new fevers or chills or sweats. No chest pain. Related Data Home Medications Medication Instructions Recorded Confirmed apixaban 5 mg tablet (Eliquis) 5 mg PO BID 10/31/20 08/08/22 ezetimibe 10 mg tablet 10 mg PO DAILY 04/09/22 08/08/22 aspirin 81 mg tablet,delayed 81 mg PO HS 05/14/22 08/08/22 release amiodarone 400 mg tablet 200 mg PO DAILY 07/17/22 08/08/22 metoprolol tartrate 25 mg tablet 75 mg PO HS 07/31/22 08/08/22 Allergies Allergy/AdvReac Type Severity Reaction Status Date / Time poison carlos extract Allergy Severe Blister Verified 08/08/22 13:04 Review of Systems Review of Systems: All systems reviewed & are unremarkable except as noted in HPI and below Constitutional: Constitutional: Denies chills, Denies fatigue and Denies fever(s) ENT: Denies nasal congestion and Denies sore throat Cardiovascular: Cardiovascular: Denies chest pain, Denies rapid heart rate and Denies radiating jaw, neck or arm pain Respiratory: Respiratory: Denies cough, Reports dyspnea and Denies wheezing Comments: +orthopnea Gastrointestinal: Gastrointestinal: Denies abdominal pain, Denies nausea and Denies vomiting PMFSH Past Medical History Medical History CAD (coronary artery disease) Chronic anticoagulation Chronic kidney disease, stage 3 Legionella pneumonia Nonischemic congestive cardiomyopathy Pacemaker Ventricular tachyarrhythmia Surgical History Surgical History H/O hernia repair Family History Family History Father Family history of malignant neoplasm, Onset Age: 67 Sibling Family history of lung cancer Patient's sister is in good health Patient's brother is in good health Mother Family history of lung cancer, Onset Age: 80 Family history of cardiovascular disease Social History Social History Smoking packs per day: 1 Smoking cigarettes per day: 20.0 Years smoked: 4 Smoking pack-years: 4.00 Smoking status: Former smoker Tobacco type: cigarettes Second hand tobacco smoke exposure: Yes Smoking end date: 12/28/1966 Alcohol intake: current Drinks per week: 7 Alcohol use details: 2 glasses of wine per week Substance use: never Substance use type: does not use Spiritual care concerns: No Exam Narrative: GENERAL: Well-appearing, well-nourished, and in no acute distress. HEAD: Normocephalic, atraumatic. CHEST: Diminished at the right base but otherwise clear to auscultation.. No respiratory distress. HEART: Regular rate and rhythm. Normal peripheral pulses. ABDOMEN: Soft, nontender, nondistended. EXTREMITIES: Normal range of motion. 1+ edema. SKIN: Warm, dry, no rash. NEURO: Alert and oriented x3. PSYCH: Normal mood and affect. Course Course Emergency Course: Patient informed of results. Discussed that he could take an extra dose of Lasix in the next 3 days to see if it improves his symptoms. H
[2022-08-12 15:19] LABS: Basophils Absolute Auto 0.1 K/mm3 (0.0-0.1); Basophils Percent Auto 1.4 % (0.2-1.2); Eosinophils Absolute Auto 0.1 K/mm3 (0-0.3); Eosinophils Percent Auto 2.8 % (0-4.4); Hematocrit 40.9 % (42.0-52.0); Hemoglobin 13.3 g/dL (14.0-18.0); Immature Granulocyte Absolute 0.01 K/mm3 (0.00-0.031); Immature Granulocyte Percent A 0.2 % (0-0.5); Lymphocytes Absolute Auto 0.98 K/mm3 (0.9-3.2); Lymphocytes Percent Auto 19.8 % (18.3-44.2); Mean Corpuscular HGB Conc 32.5 g/dl (32-36); Mean Corpuscular Volume 95.3 fl (80-100); Mean Platelet Volume 9.6 fl (7.4-10.4); Monocytes Absolute Auto 0.5 K/mm3 (0.1-0.6); Monocytes Percent Auto 9.9 % (2.6-8.5); Neutrophils Absolute Auto 3.3 K/mm3 (1.3-6.7); Neutrophils Percent Auto 65.9 % (45.5-73.1); Platelet Count Result 228 k/mm3 (150-375); Red Blood Count 4.29 M/mm3 (4.6-6.20)
[2022-08-12 15:30] LABS: Alanine Aminotransferase 29 U/L (6-50); Albumin Level 3.6 g/dL (3.5-5.1); Alkaline Phosphatase 94 U/L (38-126); Anion Gap 6 mmol/L (8-16); Aspartate Amino Transferase 42 U/L (17-59); Bilirubin,Total 0.8 mg/dL (0.2-1.3); Blood Urea Nitrogen 21 mg/dL (9-20); Calcium 8.3 mg/dL (8.4-10.2); Carbon Dioxide 26 mmol/L (22-30); Chloride 107 mmol/L (98-107); Estimated CRCL calculation 47 ml/min; Estimated Glomerular Filt Rate 49; Glucose 85 mg/dL (65-110); INR 1.6; Potassium 4.1 mmol/L (3.4-5.0); Prothrombin Time 18.1 Seconds (11.1-14.7); Sodium 139 mmol/L (137-145)
[2022-08-12 15:31] LABS: Partial Thromboplastin Time 36.5 SECONDS (22.3-36.8)
[2022-08-12 15:39] LABS: NT Pro B Type Natriuretic Pept 6480 pg/mL (5-100)
[2022-08-12 16:30] VITALS: BP 156/94; PULSE 61; RESP 18; O2SAT 98
[2022-08-12 18:25] VITALS: BP 162/98; PULSE 59; RESP 18; O2SAT 98
== END 2022-08-12 18:30 | disposition home or self-care (01) ==
PROVIDERS: Emergency Provider Emergency Medicine; PCP Internal Medicine
DX: J90 Pleural effusion, not elsewhere classified (principal); I25.10 Atherosclerotic heart disease of native coronary artery without angina pectoris; N18.30 Chronic kidney disease, stage 3 unspecified; I42.8 Other cardiomyopathies; Z95.0 Presence of cardiac pacemaker; Z87.891 Personal history of nicotine dependence; Z79.01 Long term (current) use of anticoagulants; Z79.82 Long term (current) use of aspirin
CPT/HCPCS: 36415; 71046; 80053; 83880; 85025; 85610; 85730; 99284

== ENCOUNTER 2022-08-14 01:22 | Outpatient (CLI) | payer OTHER, SELFPAY ==
[2022-08-13 11:29] VITALS: BMI 28.0
--- NOTE | 2022-08-13 11:31 | PC.NURSE ---
Pre Radiology instructions Report to the Outpatient Waiting Room, entrance under the green pavilion located off [facility], at time 0930 on date 08/14/22. Procedure Time: 1130. YOU MAY BE MONITORED AT HOSPITAL FOR UP TO 4 HOURS AFTER YOUR PROCEDURE. One visitor will be allowed to accompany the patient into the hospital. The visitor will be instructed to remain with patient at all times or leave the building due to restrictions. We will allow the visitor to come back to the postoperative area when patient is ready. NO children visitors allowed at this time. You and your visitor will be asked to self-screen and do not enter if you have any COVID symptoms. A mask is required within the hospital. Patients are to have no food or drink 6 hours prior to procedure time Driving will be restricted after the procedure, you must have a person to drive you home. Labs will be drawn in preop area and once reviewed, you will be taken to radiology area for procedure. When the procedure is completed, you will be taken to outpatient where you will be monitored for several hours. You may have one visitor in this area. Other than holding anti-coagulants, patient may take other medication(s) as scheduled. Prior to your appointment date patients are instructed to hold anti-coagulants after discussing with ordering provider to stop. If unable to discontinue anti-coagulants please notify radiologist. No aspirin or warfarin (Coumadin) for 7 days prior to the procedure. No clopidogrel (Plavix), ticagrelor (Brilinta), prasugrel (Effient) or dabigatran (Pradaxa) for 5 days prior to the procedure. No rivaroxaban (Xarelto), apixaban (Eliquis), dipyridamole (Aggrenox or Persantine) or cilostazol (Pletal) for 2 days prior to the procedure. Medications to discontinue per physician: ASPIRIN, PLAVIX Date to take last dose: NO MORE UNTIL AFTER PROCEDURE. PT LAST TOOK ASPIRIN 08/12, PLAVIX 9/12 AM Please leave all valuables, including medications, at home the day of procedure. The hospital will not accept responsibility for valuables. Wear comfortable, loose fitting clothing. Follow any additional instructions given to you from ordering provider. Telephone instructions given to PT -CAROLYN TORRES and asked if any additional questions and then verbalized understanding. Patient advised to call scheduling provider office or registration scheduling [phone] if any additional questions.
[2022-08-14] VITALS (8 sets, daily range): BP systolic 145–156; BP diastolic 90–100; PULSE 60–73; RESP 14–16; TEMP 36.6; O2SAT 93–100
--- NOTE | ~2022-08-14 | US_ITS ---
EXAMINATION: US thoracentesis DATE: 08/14/2022 12:21 INDICATION: Right pleural effusion TECHNIQUE: The procedure and its risks and benefits were discussed with the patient. Potential risks discussed included bleeding, infection, and pneumothorax. The patient understood the risks and agreed to proceed. The skin was prepped and draped in sterile fashion. 1% lidocaine was used for local anes thesia. Under ultrasound guidance, a 5 Fr catheter with trochar was advanced into the right pleural e ffusion. Fluid was aspirated. The catheter was removed, and a dressing was applied. There were no imm ediate complications. FINDINGS: Ultrasound images demonstrate a large right pleural effusion and the catheter within the fluid. IMPRESSION: 1. Successful ultrasound-guided thoracentesis yielding 1100 mL of clear yellow fluid. Reviewed, dictated and finalized at location A.
--- NOTE | ~2022-08-14 | XR_ITS ---
EXAMINATION: XR_[id number]_CR DATE: 08/14/2022 12:02 INDICATION: Right pleural effusion status post thoracentesis. TECHNIQUE: A single frontal view of the chest was obtained. COMPARISON: Chest 2 views 08/12/2022 FINDINGS: There is a moderate-sized right pleural effusion. There are airspace opacities at the lung bases. No pneumothorax. Cardiomegaly is noted. There is a left chest pacer/defibrillator with leads i n right atrium, right ventricle, and coronary sinus. IMPRESSION: 1. Moderate-sized right pleural effusion with improvement status post thoracentesis. 2. Airspace opacities at the lung bases, right worse than left, consistent with atelectasis versus pn eumonia. 3. Cardiomegaly. Reviewed, dictated and finalized at location A. IMPRESSION: 1. Moderate-sized right pleural effusion with improvement status post thoracent esis. 2. Airspace opacities at the lung bases, right worse than left, consistent with atelectasis versus pneumonia. 3. Cardiomegaly.
[2022-08-14 10:08] LABS: Mean Platelet Volume 9.8 fl (7.4-10.4); Platelet Count Result 219 k/mm3 (150-375)
[2022-08-14 10:18] LABS: INR 1.2; Prothrombin Time 14.8 Seconds (11.1-14.7)
== END 2022-08-14 14:03 | disposition home or self-care (01) ==
PROVIDERS: PCP Internal Medicine; Visit Provider Radiology Diagnostic Radiology
DX: J90 Pleural effusion, not elsewhere classified (principal); I51.7 Cardiomegaly; R91.8 Other nonspecific abnormal finding of lung field
CPT/HCPCS: 32555; 36415; 85049; 85610

== ENCOUNTER 2022-08-14 17:07 | Observation (INO) | payer OTHER, SELFPAY ==
[2022-08-14] VITALS (25 sets, daily range): BP systolic 117–151; BP diastolic 70–89; PULSE 60–84; RESP 14–24; TEMP 36.6; O2SAT 91–100
--- NOTE | ~2022-08-14 | XR_ITS ---
EXAMINATION: XR chest 1V portable Exam Date/Time: 08/14/2022 18:30 CDT HISTORY: syncope Comparison: Same date at 11:58 AM. RESULT: Lines, tubes, and devices: Right chest pacer/defibrillator with incompletely visualized leads. Lungs and pleura: Persistent patchy right lower lung airspace disease. Moderate right costophrenic a ngle blunting. Cardiomediastinal silhouette: Stable. Other: No acute osseous or upper abdominal finding. IMPRESSION: Right lower lobe atelectasis/consolidation and moderate right effusion, unchanged given interval diff erences in positioning. Reviewed, dictated and finalized at location K. IMPRESSION: Right lower lobe atelectasis/consolidation and moderate right effusion, unchang ed given interval differences in positioning.
--- NOTE | ~2022-08-14 | CT_ITS ---
EXAMINATION: CT brain wo con DATE: 08/14/2022 18:13 INDICATION: head trauma, anticoagulated . TECHNIQUE: Computed tomography (CT) of the head was performed without intravenous contrast. The mA wa s adjusted according to patient size. Iterative reconstruction technique was employed. The dose-lengt h product was 681.00 mGy-cm. COMPARISON: 03/21/2022 FINDINGS: No acute intracranial hemorrhage or extra-axial fluid collection. No hydrocephalus, mass, or herniation. No acute ischemic infarct. Unremarkable dural venous sinus attenuation. No acute osseous abnormality. Right parietal scalp contusion. The aerated spaces are clear. Mild atrophy and chronic white matter change. Atherosclerotic intracranial calcifications. IMPRESSION: No acute intracranial process. Reviewed, dictated and finalized at location K.
--- NOTE | 2022-08-14 17:25 | ED.SOB ---
HPI - SOB/Dyspnea General Chief Complaint: Shortness of Breath/Dyspnea Stated Complaint: SOB after procedure today Time Seen by Provider: 08/14/22 17:24 Source: patient Mode of arrival: ambulatory Limitations: no limitations History of Present Illness HPI Narrative: The patient is a 77-year-old male with a history of cardiomyopathy, CHF, ventricular tachycardia status post dual AICD placement, legionnaires disease, recurrent pleural effusion, ascites, presenting to the emergency department for evaluation of syncopal event. Patient had a syncopal event today and per pacemaker company, had a an episode of nonsustained ventricular tachycardia after he had a thoracentesis today. Pt reporting feeling dyspneic and lightheaded after the procedure, and then passed out. He was at home when this occurred. Pt with LOC and head trauma from the syncopal event. Pt denies any current chest pain, palpitations, dyspnea. Pt denies vision changes, nausea or vomiting. Patient then drove himself to this emergency department. 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 Related Data Home Medications Medication Instructions Recorded Confirmed apixaban 5 mg tablet (Eliquis) 5 mg PO BID 10/31/20 08/14/22 ezetimibe 10 mg tablet 10 mg PO DAILY 04/09/22 08/13/22 aspirin 81 mg tablet,delayed 81 mg PO HS 05/14/22 08/14/22 release amiodarone 400 mg tablet 200 mg PO DAILY 07/17/22 08/14/22 metoprolol tartrate 25 mg tablet 75 mg PO HS 07/31/22 08/13/22 Allergies Allergy/AdvReac Type Severity Reaction Status Date / Time poison carlos extract Allergy Severe Blister Verified 08/14/22 17:28 Review of Systems Review of Systems: CONSTITUTIONAL: Denies fever, chills, or sweats. EYES: Denies visual changes, redness, or discharge. ENT: Denies rhinorrhea, congestion, sore throat, or otalgia. CARDIOVASCULAR: Denies chest pain, palpitations, or edema. RESPIRATORY: Denies cough or dyspnea. GASTROINTESTINAL: Denies abdominal pain, nausea, vomiting, or diarrhea. GENITOURINARY: Denies dysuria or hematuria. SKIN: Denies rash or itching. MUSCULOSKELETAL: Denies back pain, joint pain, or myalgia. NEUROLOGIC: Denies headache, numbness, or weakness. [facility] Past Medical History Medical History CAD (coronary artery disease) Chronic anticoagulation Chronic kidney disease, stage 3 Legionella pneumonia Nonischemic congestive cardiomyopathy Pacemaker Ventricular tachyarrhythmia Surgical History Surgical History H/O hernia repair Family History Family History Father Family history of malignant neoplasm, Onset Age: 67 Sibling Family history of lung cancer Patient's sister is in good health Patient's brother is in good health Mother Family history of lung cancer, Onset Age: 80 Family history of cardiovascular disease Social History Social History Smoking packs per day: 1 Smoking cigarettes per day: 20.0 Years smoked: 4 Smoking pack-years: 4.00 Smoking status: Former smoker Tobacco type: cigarettes Second hand tobacco smoke exposure: Yes Smoking end date: 12/28/1966 Alcohol intake: current Drinks per week: 7 Alcohol use details: 2 glasses of wine per week Substance use: never Substance use type: does not use Spiritual care concerns: No Exam Narrative: GENERAL: Awake, alert, conversant HEAD: Normocephalic, small hematoma, non boggy or expansive EYES: 2+ PERRLA and EOMI. ENT: Nares clear, no rhinorrhea or epistaxis. Mucous membranes moist. NECK: Supple. No midline cervical tenderness. CHEST: No respiratory distress, breathing even and non labored. Chest wall is stable. HEART: Regular rate, sinus rhythm ABDOMEN:Non distended, non tender EXTREMITIES: N
--- NOTE | 2022-08-14 17:28 | ECG_ITS ---
Measurements Intervals [place] Rate: 70 P: -58 AK: 167 QRS: 269 QRSD: 211 T: 71 QT: 547 QTc: 592 Interpretive Statements ELECTRONIC ATRIAL PACEMAKER ELECTRONIC VENTRICULAR PACEMAKER NO FURTHER INTERPRETATION IS POSSIBLE ATYPICAL ECG COMPARED TO ECG 07/19/2022 13:57:52 NO SIGNICANT CHANGES Electronically Signed On 08-14-2022 21:51:10 CDT by Hunter Moreau D.O.
[2022-08-14 18:30] LABS: Basophils Absolute Auto 0.1 K/mm3 (0.0-0.1); Basophils Percent Auto 1.1 % (0.2-1.2); Eosinophils Absolute Auto 0.1 K/mm3 (0-0.3); Eosinophils Percent Auto 1.8 % (0-4.4); Hematocrit 41.4 % (42.0-52.0); Hemoglobin 13.1 g/dL (14.0-18.0); Immature Granulocyte Absolute 0.01 K/mm3 (0.00-0.031); Immature Granulocyte Percent A 0.2 % (0-0.5); Lymphocytes Absolute Auto 0.82 K/mm3 (0.9-3.2); Lymphocytes Percent Auto 14.6 % (18.3-44.2); Mean Corpuscular HGB Conc 31.6 g/dl (32-36); Mean Corpuscular Hemoglobin 30.9 pg (26-34); Mean Corpuscular Volume 97.6 fl (80-100); Mean Platelet Volume 9.3 fl (7.4-10.4); Monocytes Absolute Auto 0.5 K/mm3 (0.1-0.6); Monocytes Percent Auto 8.8 % (2.6-8.5); Neutrophils Absolute Auto 4.1 K/mm3 (1.3-6.7); Neutrophils Percent Auto 73.5 % (45.5-73.1); Platelet Count Result 197 k/mm3 (150-375); Red Blood Count 4.24 M/mm3 (4.6-6.20); White Blood Count 5.6 K/mm3 (4.5-10.0)
[2022-08-14 18:43] LABS: Alanine Aminotransferase 25 U/L (6-50); Albumin Level 3.6 g/dL (3.5-5.1); Alkaline Phosphatase 72 U/L (38-126); Anion Gap 11 mmol/L (8-16); Aspartate Amino Transferase 36 U/L (17-59); Bilirubin,Total 0.7 mg/dL (0.2-1.3); Blood Urea Nitrogen 23 mg/dL (9-20); Calcium 7.9 mg/dL (8.4-10.2); Carbon Dioxide 24 mmol/L (22-30); Chloride 106 mmol/L (98-107); Estimated CRCL calculation 47 ml/min; Estimated Glomerular Filt Rate 49; Glucose 101 mg/dL (65-110); Magnesium 2.2 mg/dL (1.6-2.3); Phosphorus 4.2 mg/dL (2.5-4.5); Potassium 3.7 mmol/L (3.4-5.0); Sodium 141 mmol/L (137-145)
[2022-08-14 19:07] LABS: SARS-CoV-2 RNA PCR Negative
--- NOTE | 2022-08-14 19:26 | PC.NURSE ---
Patient report received from SUAYPA Stewart. All questions answered and care of patient assumed.
--- NOTE | 2022-08-14 19:45 | PC.NURSE ---
Patient resting quietly in stretcher with call-light within reach. VSS. Patient denies complaints. Awaiting disposition. Will continue to address needs as they arise.
--- NOTE | 2022-08-14 19:53 | PM.IMHP ---
H&P: HPI History of Present Illness Date/Time: 08/14/22 19:53 Chief Complaint: 77 years old male with past medical history of cardiac arrhythmia hypertension CHF status post AICD history of recurrent pleural effusion history of pneumonia recently 10 weeks ago presented to the hospital with syncopal episode today after patient has thoracentesis with removal of 1100 mL of yellow fluid patient has a brief loss of consciousness and fell to the ground and hit his head but no physical sign of injury patient was having shortness of breath with activity chest x-ray showed pleural effusion with atelectasis /consolidation patient denies fever or chills according to electrophysiology patient has a run of V-tach cardiology was consulted but according to the ER interrogation of AICD did not show V-tach Review of Systems Review of Systems: full system review was done was negative except above PMFSH Past Medical History Medical History CAD (coronary artery disease) Chronic anticoagulation Chronic kidney disease, stage 3 Legionella pneumonia Nonischemic congestive cardiomyopathy Pacemaker Ventricular tachyarrhythmia Surgical History Surgical History H/O hernia repair Family History Family History Father Family history of malignant neoplasm, Onset Age: 67 Sibling Family history of lung cancer Patient's sister is in good health Patient's brother is in good health Mother Family history of lung cancer, Onset Age: 80 Family history of cardiovascular disease Social History Social History Smoking packs per day: 1 Smoking cigarettes per day: 20.0 Years smoked: 4 Smoking pack-years: 4.00 Smoking status: Former smoker Tobacco type: cigarettes Second hand tobacco smoke exposure: Yes Smoking end date: 12/28/1966 Alcohol intake: current Drinks per week: 7 Alcohol use details: 2 glasses of wine per week Substance use: never Substance use type: does not use Spiritual care concerns: No Meds Home Medications and Allergies Home Medications Medication Instructions Recorded Confirmed Type apixaban 5 mg tablet (Eliquis) 5 mg PO BID 10/31/20 08/14/22 History ezetimibe 10 mg tablet 10 mg PO DAILY 04/09/22 08/13/22 History aspirin 81 mg tablet,delayed 81 mg PO HS 05/14/22 08/14/22 History release amiodarone 400 mg tablet 200 mg PO DAILY 07/17/22 08/14/22 History furosemide 20 mg tablet 20 mg PO DAILY #30 tabs 07/23/22 08/13/22 Rx metoprolol tartrate 25 mg tablet 75 mg PO HS 07/31/22 08/13/22 History Allergies Allergy/AdvReac Type Severity Reaction Status Date / Time poison carlos extract Allergy Severe Blister Verified 08/14/22 17:28 Vital Signs Vital Signs - 24 hr 08/14/22 17:14 08/14/22 17:29 08/14/22 17:30 Temperature 97.8 F Pulse Rate 75 Respiratory Rate 16 Blood Pressure 151/87 H Pulse Oximetry 100 100 Oxygen Delivery Room Air Room Air Room Air 08/14/22 17:19 08/14/22 17:38 08/14/22 17:45 Temperature Pulse Rate 63 61 62 Respiratory Rate 16 16 19 Blood Pressure 132/70 Pulse Oximetry 99 98 100 Oxygen Delivery 08/14/22 17:46 08/14/22 18:00 08/14/22 18:01 Temperature Pulse Rate 61 60 Respiratory Rate 19 20 Blood Pressure 128/73 128/77 Pulse Oximetry 98 98 Oxygen Delivery 08/14/22 18:28 08/14/22 18:38 08/14/22 19:08 Temperature Pulse Rate 60 61 60 Respiratory Rate 22 H 20 20 Blood Pressure 139/85 Pulse Oximetry 100 97 97 Oxygen Delivery 08/14/22 19:15 Temperature Pulse Rate 60 Respiratory Rate 18 Blood Pressure Pulse Oximetry 96 Oxygen Delivery Exam Narrative: GENERAL: Awake, alert, conversant HEAD: Normocephalic, atraumatic. EYES: PERRLA
--- NOTE | 2022-08-14 20:04 | PC.NURSE ---
Hospitalist at bedside to assess pt.
[2022-08-14 20:46] LABS: Troponin I 0.034 ng/mL (0.000-0.034)
[2022-08-14] MEDS: POTASSIUM CHLORIDE 20 MEQ TABLET 40 MEQ PO (20:59)
[2022-08-14] MEDS: POTASSIUM CHLORIDE 20 MEQ PACKET (FOR LIQUID) PO (20:59)
--- NOTE | 2022-08-14 21:06 | PC.NURSE ---
Patient assisted to the BR. Denies complaints. No dizziness, no shortness of breath, no CP. Patient with steady gait.
--- NOTE | 2022-08-14 21:20 | PC.NURSE ---
This patient, Ariel Cifuentes, was admitted to IMU Room 209-01. Patient/family oriented to hospital policies and general routines including ID bracelet, bed and alarms, visiting hours, pain management, procedures, bathroom and other care routines, personal items, smoking policy, room service/diet, and visiting hours. Information on how to activate the Rapid Response Team has been discussed. Patient/Family are encouraged to report perceived risks to care and to ask questions if they do not understand what they are told or what they should do.
[2022-08-14 22:30] LABS: Troponin I 0.037 ng/mL (0.000-0.034)
[2022-08-14] MEDS: METOPROLOL SUCCINATE EXT REL 25 MG TABCR 75 MG PO (23:10)
[2022-08-15] VITALS (10 sets, daily range): BP systolic 142–155; BP diastolic 83–88; PULSE 60–71; RESP 18–22; TEMP 36.2–36.7; O2SAT 93–98; BMI 29.2
[2022-08-15 01:02] LABS: Troponin I 0.028 ng/mL (0.000-0.034)
[2022-08-15 08:11] LABS: Basophils Absolute Auto 0.1 K/mm3 (0.0-0.1); Basophils Percent Auto 1.1 % (0.2-1.2); Eosinophils Absolute Auto 0.1 K/mm3 (0-0.3); Eosinophils Percent Auto 2.7 % (0-4.4); Hematocrit 37.9 % (42.0-52.0); Hemoglobin 12.6 g/dL (14.0-18.0); Immature Granulocyte Absolute 0.02 K/mm3 (0.00-0.031); Immature Granulocyte Percent A 0.5 % (0-0.5); Lymphocytes Absolute Auto 0.87 K/mm3 (0.9-3.2); Lymphocytes Percent Auto 19.9 % (18.3-44.2); Mean Corpuscular HGB Conc 33.2 g/dl (32-36); Mean Corpuscular Volume 93.1 fl (80-100); Mean Platelet Volume 9.4 fl (7.4-10.4); Monocytes Absolute Auto 0.4 K/mm3 (0.1-0.6); Monocytes Percent Auto 9.6 % (2.6-8.5); Neutrophils Absolute Auto 2.9 K/mm3 (1.3-6.7); Neutrophils Percent Auto 66.2 % (45.5-73.1); Platelet Count Result 178 k/mm3 (150-375); Red Blood Count 4.07 M/mm3 (4.6-6.20); White Blood Count 4.4 K/mm3 (4.5-10.0)
[2022-08-15 08:30] LABS: Alanine Aminotransferase 21 U/L (6-50); Alkaline Phosphatase 71 U/L (38-126); Anion Gap 6 mmol/L (8-16); Aspartate Amino Transferase 31 U/L (17-59); Bilirubin,Total 0.9 mg/dL (0.2-1.3); Blood Urea Nitrogen 20 mg/dL (9-20); Calcium 7.8 mg/dL (8.4-10.2); Carbon Dioxide 24 mmol/L (22-30); Chloride 107 mmol/L (98-107); Estimated CRCL calculation 51 ml/min; Estimated Glomerular Filt Rate 54; Glucose 87 mg/dL (65-110); Magnesium 2.1 mg/dL (1.6-2.3); Sodium 137 mmol/L (137-145)
[2022-08-15] MEDS: AMIODARONE HCL 200 MG TABLET 400 MG BY MOUTH (09:07)
[2022-08-15] MEDS: EZETIMIBE 10 MG TABLET PO (09:07)
[2022-08-15] MEDS: APIXABAN 5 MG TABLET PO ×2 (09:07→17:02)
[2022-08-15] MEDS: FUROSEMIDE 20 MG TABLET PO (09:07)
--- NOTE | 2022-08-15 15:05 | PM.CNCAR ---
Assessment and Plan Assessment and plan (1) Syncope: Code(s): R55 - Syncope and collapse Status: Acute Assessment and Plan: Prior interrogation by his quality assurance manager [facility] revealed slow VT below his therapy zone. VT appeared to be associated with his syncopal event. ICD settings adjusted today reducing VT zone to 125 beats per minute and is VT monitoring to 105 beats per minute. Continue amiodarone 400 mg daily. Increase Toprol XL to 100 mg daily. Continue additional medical therapy. Patient will be seen in the office as an outpatient by like physiology on Saturday. They will contact him to update him on his appointment. From cardiac perspective he has not had recurrent VT and is asymptomatic. He may be discharged home from cardiac perspective to follow up as outpatient with EP this month. They will be discussing VT ablation. Disposition per hospitalist service. (2) Ventricular tachycardia: Code(s): I47.2 - Ventricular tachycardia Status: Acute Assessment and Plan: As above resulting in syncope. Device interrogation at this institution did not demonstrate VT as his interrogation by EP at [facility] after his syncopal event having all the counters cleared. (3) ICD (implantable cardioverter-defibrillator) in place: Code(s): Z95.810 - Presence of automatic (implantable) cardiac defibrillator Status: Acute Assessment and Plan: As above. (4) Chronic anticoagulation: Code(s): Z79.01 - intermediate (current) use of anticoagulants Status: Acute Assessment and Plan: Continue apixaban 5 mg twice daily. (5) Paroxysmal atrial fibrillation: Code(s): I48.0 - Paroxysmal atrial fibrillation Status: Acute Assessment and Plan: Stable, paroxysmal in nature. AV paced rhythm for the most part on telemetry. (6) CAD (coronary artery disease): Code(s): I25.10 - Atherosclerotic heart disease of [place] coronary artery without angina pectoris Status: Acute History of Present Illness History of Present Illness Consult date/time: Date of service: 08/15/22 15:05 Requesting physician: Hill Mota M.A., MD Consult reason: Other (Syncope, history of ventricular tachycardia) Reason For Visit: Syncope Narrative: Patient is a pleasant 77-year-old male with a past medical history significant for history of syncope related to ventricular tachycardia history of dilated cardiomyopathy, CAD paroxysmal atrial fibrillation on anticoagulation who recently underwent thoracentesis later feeling as if his heart was racing with bright light dinner losing consciousness. Interrogation by electrophysiology as an outpatient after he passed out indicated ventricular tachycardia. His counters were cleared and so interrogation in the ER did not reveal ventricular arrhythmias. I [facility] with a plan to see him this week as an outpatient and discuss VT ablation options. Patient denies chest pain, shortness of breath or recurrent palpitations. Denies lower extremity edema, orthopnea or PND. He has been compliant with medications including amiodarone and Toprol XL. Review of Systems Review of Systems: A fevers chills, lower extremity edema, bright red blood per rectum, melena, nausea, vomiting, hemoptysis, rashes hair skin or nail changes heat or cold intolerance. Remainder of the review of systems is otherwise negative. All systems reviewed & are unremarkable except as noted in HPI and below Constitutional: Constitutional: Reports as per HPI and Reports no additional constitutional complaints Eyes: Eyes: Reports as per HPI and Reports no additional eye complaints ENT: Reports system reviewed and no additional complaints, except as documented and Reports as per HPI Cardiovascular: Cardiovascular: Reports as per HPI and Reports no additional cardiovascular complaints Resp
--- NOTE | 2022-08-15 16:38 | PM.DS ---
DS: Admitting Diagnosis Discharge Date 08/15/22 Admitting Diagnosis Syncopal episode DS: Discharge Diagnosis Discharge Diagnosis (1) Syncope: Code(s): R55 - Syncope and collapse Status: Acute (2) Ventricular tachycardia: Code(s): I47.2 - Ventricular tachycardia Status: Acute (3) Recurrent pleural effusion on right: Code(s): J90 - Pleural effusion, not elsewhere classified Status: Acute (4) CHF (congestive heart failure): Code(s): I50.9 - Heart failure, unspecified Status: Acute (5) CAD (coronary artery disease): Code(s): I25.10 - Atherosclerotic heart disease of [place] coronary artery without angina pectoris Status: Acute (6) Nonischemic congestive cardiomyopathy: Code(s): I42.0 - Dilated cardiomyopathy Status: Acute (7) Hypertension, essential: Code(s): I10 - Essential (primary) hypertension Status: Acute (8) Mixed hyperlipidemia: Code(s): E78.2 - Mixed hyperlipidemia Status: Acute (9) Paroxysmal atrial fibrillation: Code(s): I48.0 - Paroxysmal atrial fibrillation Status: Acute (10) ICD (implantable cardioverter-defibrillator) in place: Code(s): Z95.810 - Presence of automatic (implantable) cardiac defibrillator Status: Acute DS: Summary Hospital Course Reason for hospitalization: 77yo male with hx of CAD, CKD and ventricular tachyarrhythmia with PM here for syncopal episode after a thoracentesis. Please see H&P for details Hospital Course: Patient underwent thoracentesis on the day of admission. He reported feeling dyspneic and lightheaded after the procedure and had a syncopal episode. Pacemaker company reviewed the pacemaker and showed that the patient had an episode of nonsustained V-tach at that time. EKG shows paced rhythm. Chest x-ray showed moderate size right pleural effusion with improvement status post thoracentesis. He did have 1100 mL of clear yellow fluid removed. Repeat chest x-ray showed right lower lobe atelectasis/consolidation and moderate right pleural effusion essentially unchanged. CT the brain showed no acute findings. Magnesium was 2.2. Potassium was 3.7. COVID was negative. His potassium was replaced. He was admitted to IMU. Cardiology was consulted. It appears the patient has slow V-tach. ICD settings were adjusted to reduce the VT zone at 125 beats per minute and is VT monitored at 105 beats per minute. He continues amiodarone 400 mg daily. We increased his Toprol-XL to 100 mg daily. Patient will be seen in the EP office as an outpatient this week. Cardiology felt patient could be discharged home. Patient is eager for discharge. Patient overall did well and was able to be discharged home on 08/15/2022. Status at Discharge Cognitive/behavioral status at discharge: stable Time Spent with Patient Time attestation: Total time spent providing and/or coordinating discharge services: 35 minutes Time spent: Greater than 30 minutes Exam Narrative: AF 98.1 155/83 60 20 98% ra Gen - NARD Chest - decreased BS in the right base CV - RRR S1/S2 Abd - Soft, NT/ND, Positive BS Ext - No pedal edema Neuro - Alert and oriented. Nonfocal exam. Psych - Nml mood and affect Skin - Warm and dry DS: Data Data Completed and Pending Labs on day of discharge: Labs from last 24 hours 08/15/22 08/15/22 08/15/22 07:59 07:59 00:32 WBC 4.4 L RBC 4.07 L Hgb 12.6 L Hct 37.9 L MCV 93.1 MCH 31.0 MCHC 33.2 RDW 15.0 H Plt Count 178 MPV 9.4 Immature Gran % (Auto) 0.5 Neut % (Auto) 66.2 Lymph % (Auto) 19.9 [place] % (Auto) 9.6 H Eos % (Auto) 2.7 Baso % (Auto) 1.1 Lymph # (Auto) 0.87 L [place] # (Auto) 0.4 Eos # (Auto) 0.1 Baso # (Auto) 0.1 Abs Immat Gran (auto) 0.02 Absolute Neuts (auto) 2.9 Absolute Nucleated RBC 0.0 Nucleated RBC % 0.0 Sodium 137 Potassium 4.0
== END 2022-08-15 18:35 | disposition home or self-care (01) ==
LOC: ANHED 20:41 → ANHIMU 21:25
PROVIDERS: Admitting Provider Internal Medicine; Emergency Provider Emergency Medicine; PCP Internal Medicine; Visit Provider Internal Medicine
DX: R55 Syncope and collapse (principal); I47.2 Ventricular tachycardia; J90 Pleural effusion, not elsewhere classified; I13.0 Hypertensive heart and chronic kidney disease with heart failure and stage 1 through stage 4 chronic kidney disease, or unspecified chronic kidney disease; I50.9 Heart failure, unspecified; N18.30 Chronic kidney disease, stage 3 unspecified; I25.10 Atherosclerotic heart disease of native coronary artery without angina pectoris; I42.0 Dilated cardiomyopathy; E78.2 Mixed hyperlipidemia; I48.0 Paroxysmal atrial fibrillation; Z95.810 Presence of automatic (implantable) cardiac defibrillator; R06.02 Shortness of breath; R18.8 Other ascites; S09.90XA Unspecified injury of head, initial encounter; W18.30XA Fall on same level, unspecified, initial encounter; Z20.822 Contact with and (suspected) exposure to COVID-19; Z72.89 Other problems related to lifestyle; Z87.01 Personal history of pneumonia (recurrent); Z87.891 Personal history of nicotine dependence; Z79.01 Long term (current) use of anticoagulants; Z79.82 Long term (current) use of aspirin; Z79.899 Other long term (current) drug therapy; Z80.1 Family history of malignant neoplasm of trachea, bronchus and lung; Z82.49 Family history of ischemic heart disease and other diseases of the circulatory system
CPT/HCPCS: 32555; 36415; 70450; 71045; 80053; 83735; 84100; 84484; 85025; 85049; 85610; 93005; 99285; A9270; C9803; G0378; U0003; U0005

== ENCOUNTER 2022-09-06 13:52 | Outpatient (CLI) | payer OTHER, SELFPAY ==
--- NOTE | ~2022-09-06 | XR_ITS ---
XR chest 2V 09/06/2022 14:08 Indication: Shortness of breath. History of legionnaires disease. Procedure: PA and lateral views of the chest Comparison: Comparison to multiple prior studies sequentially, with oldest reviewed study dated 07/2022. Findings: Cardiomegaly. Pacemaker leads are stable. Unchanged right pleural effusion. Unchanged right basilar airspace disease. No edema or pneumothorax. Impression: 1: Unchanged right basilar airspace disease which may represent atypical pneumonia and/or atelectasis . 2: Stable small right pleural effusion. Reviewed, dictated and finalized at location A. Impression: 1: Unchanged right basilar airspace disease which may represent atypical pneumo maykel and/or atelectasis. 2: Stable small right pleural effusion.
== END 2022-09-06 13:53 | disposition home or self-care (01) ==
LOC: ANHIMG 13:56
PROVIDERS: PCP Internal Medicine; Visit Provider Nurse Practitioner
DX: R06.02 Shortness of breath (principal); R91.8 Other nonspecific abnormal finding of lung field; J90 Pleural effusion, not elsewhere classified
CPT/HCPCS: 71046

== ENCOUNTER 2022-10-22 09:45 | Outpatient (RCR) | payer OTHER, SELFPAY ==
--- NOTE | 2022-08-22 15:17 | PTOPEVAL1 ---
Assessment and note entered by Lizzette Cote, PT, DPT Evaluation Information Assessment Status Evaluation Diagnosis Decreased mobility Onset 3 months Subjective Information Pt states his equilibrium, endurance, and strength has all decreased in the last 2 months. 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 Due to this disease he has increased fluid accumulation in the lungs, he has had multiple liters of fluid draining, most recently 8 days ago. Prior to his hospitalization, Ariel was walking 3-4 miles 4-5 times a week and 30-40 push up and sit ups. He has an appointment with the radio broadcaster in 2 weeks. Reported Pain Level Pain Score 0: Self Report Assessment PT Clinical Summary Ariel presents to therapy today for his initial evaluation with a diagnosis of decreased mobility. Today he reports decreased balance, endurance, and strength from his baseline. He demonstrates good good strength throughout his BLE but has quick muscle fatigue. He has decreased endurance per his baseline, he ambulated at 3.3ft/s during the 6 min walk test today and did not require any rest breaks. He reports decreased core and UE strength however these are WFL. Skilled physical therapy services are indicated to progress pt's return to baseline function through endurance training, resistance training, and balance exercises, and to promote unlimited functional mobility. Plan of Care Interventions Gait Training,Neuro Re-education,Patient/Caregiver Educati,Therapeutic Activities,Therapeutic Exercise PT Services Indicated Yes Treatment Frequency and 1x/wk for 5 wks Duration These treatments will address the objective and functional deficits as defined above. The patient will be advanced safely and appropriately in order for the patient to progress towards his/her prior level of function. Additional exercises will be introduced and as well as a comprehensive home exercise program upon discharge, if needed, ?to ensure carryover of functional gains achieved in the clinic. This treatment plan has been reviewed and agreement upon by the patient.
--- NOTE | 2022-08-30 09:39 | PCPTNOTE ---
Patient called to reschedule appointment with front end manager staffing.
--- NOTE | 2022-09-07 10:38 | PCPTNOTE ---
Patient called to cancel due to illness. He is attempting to get into the hospital.
--- NOTE | 2022-09-26 11:51 | PTOPPROG ---
Assessment and note entered by Lizzette Cote, PT, DPT Evaluation Information Assessment Status Progress Diagnosis Decreased mobility Onset 3 months Subjective Information Pt states overall his mobility and strength is doing good. He states he has returned 70% to his baseline function. Pt states his balance and equilibrium still feels off. He states he has more fluid that has accumulated in his lungs limiting his endurance. Assessment PT Clinical Summary Ariel Escalera presents to therapy today for his progress report following 3 visits of skilled therapy to treat deconditioning related to a prolonged hospital stay. Today he continues to be most limited by his SOB and his R hip OA. He demonstrates mild improvement in his strength, balance, and gait speed. pt states he is still decreased from his baseline. Continuation of skilled physical therapy services are indicated to address the remaining deficits noted above, to improve endurance, and to return to baseline. Plan of Care Interventions Gait Training,Neuro Re-education,Patient/Caregiver Educati,Therapeutic Activities,Therapeutic Exercise PT Services Indicated Yes Treatment Frequency and continue 1x/wk for 4 wks Duration These treatments will address the objective and functional deficits as defined above. The patient will be advanced safely and appropriately in order for the patient to progress towards his/her prior level of function. Additional exercises will be introduced and as well as a comprehensive home exercise program upon discharge, if needed, ?to ensure carryover of functional gains achieved in the clinic. This treatment plan has been reviewed and agreement upon by the patient.
--- NOTE | 2022-10-16 09:14 | PCPTNOTE ---
Patient canceled due to conflicting appointment.
--- NOTE | 2022-10-22 10:29 | PTOPDC ---
Assessment and note entered by Lizzette Cote, PT, DPT Evaluation Information Assessment Status Discharge Diagnosis Decreased mobility Onset 3 months Subjective Information Pt states he just had to have 1.5 liters of fluid removed from his lungs again. He states his balance exercises are still difficult for him. Pt reports 60% overall improvement compared to prior to his hospitalization. Reported Pain Level Pain Score 8: Self Report Assessment PT Clinical Summary Ariel presents to therapy today for his progress report following 7 visits of skilled therapy to treat his deconditioning related to a prolonged hospitalization. Today he demonstrates a good gait speed, maintain gait speed during the 6 min walk test, and good functional mobility. His limitations this date where attributed to his hip pain. He has met or progressed towards all of his therapy goals and no longer requires skilled therapy services. He will be discharged at this time with instructions to continue his HEP and to follow up with his referring provider if needed. Plan of Care PT Services Indicated Yes Treatment Frequency and to be discharged Duration
== END 2022-10-22 16:00 | disposition home or self-care (01) ==
LOC: ANHGOSHPT 09:45
PROVIDERS: PCP Internal Medicine; Visit Provider Internal Medicine
DX: R26.89 Other abnormalities of gait and mobility (principal)
CPT/HCPCS: 97110; 97112; 97140; 97161; 97530

== ENCOUNTER 2022-11-27 14:45 | Outpatient (CLI) | payer OTHER, SELFPAY ==
--- NOTE | ~2022-11-27 | XR_ITS ---
EXAMINATION: XR chest 2V DATE: 11/27/2022 15:03 INDICATION: Pleural effusion TECHNIQUE: AP and lateral views of the chest are obtained. COMPARISON: 09/06/2022 FINDINGS: A triple-lead cardiac pacemaker of the left chest wall ends with leads in expected location s. There are small pleural effusions, right greater than left, without significant change. Minimal bi basilar airspace opacities persist but have improved. No pneumothorax is identified. Cardiomegaly is noted. IMPRESSION: 1. Small pleural effusions, right greater than left, stable. 2. Bibasilar airspace opacities with interval improvement, likely atelectasis. Reviewed, dictated and finalized at location L. TENSION TESTER
== END 2022-11-27 14:46 | disposition home or self-care (01) ==
LOC: ANHIMG 14:47
PROVIDERS: PCP Internal Medicine; Visit Provider Internal Medicine
DX: J90 Pleural effusion, not elsewhere classified (principal); R91.8 Other nonspecific abnormal finding of lung field
CPT/HCPCS: 71046

== ENCOUNTER 2024-12-18 13:56 | Outpatient (CLI) | payer OTHER, SELFPAY ==
--- NOTE | ~2024-12-18 | XR_ITS ---
EXAM: XR shoulder RT min 2V, XR shoulder LT min 2V DATE: 12/18/2024 14:21 HISTORY: M25.519 - Pain in unspecified shoulder . COMPARISON: None available. FINDINGS: Normal mineralization. No fracture or dislocation. No lytic or blastic lesion. Moderate bi lateral AC joint and glenohumeral joint degenerative changes Left chest pacer/AICD with partially vis ualized leads. No erosion or periosteal change. Soft tissues within normal limits. IMPRESSION: Moderate bilateral polyarticular shoulder osteoarthritis. Reviewed, dictated and finalized at location K. [facility] [employer] IMPRESSION: Moderate bilateral polyarticular shoulder osteoarthritis.
== END 2024-12-18 13:57 | disposition home or self-care (01) ==
PROVIDERS: PCP Family Medicine; Visit Provider Family Medicine
DX: M19.011 Primary osteoarthritis, right shoulder (principal); M19.012 Primary osteoarthritis, left shoulder
CPT/HCPCS: 73030

== ENCOUNTER 2025-02-15 13:30 | Outpatient (RCR) | payer OTHER, SELFPAY ==
[2024-12-25 14:35] VITALS: BP_SYST 120
--- NOTE | 2024-12-25 15:31 | OPREHPOC ---
Outpatient Therapy Plan of Care This is a Multidisciplinary Plan of Care that may contain components documented by all disciplines (PT, OT, and ST.) PT Problem 1 PT Problem #1 Knowledge Deficit PT Goal 1 Goal / Goal Update *indep with HEP Target Visit 8 PT Problem 2 PT Problem #2 Pain PT Goal 1 Goal / Goal Update * pt report shoulder pain at worst of L shoulder Target Visit 8 PT Goal 2 Goal / Goal Update * pt report able to put on his coat without pain increase Target Visit 8 PT Problem 3 PT Problem #3 Impaired Range of Motion PT Goal 1 Goal / Goal Update * increase L shoulder active ROM to improve use of L arm for home and self care tasks in standing L shoulder flexion to 140' and abduction to 130' Target Visit 8 PT Problem 4 PT Problem #4 Impaired Strength PT Goal 1 Goal / Goal Update *increase strength of R and L shoulder to 4+/5, to improve use of arms with home and self care activities Target Visit 8
--- NOTE | 2024-12-25 15:31 | PTOPEVAL1 ---
Assessment and note entered by Valerie Pacheco, PT Evaluation Information Assessment Status Evaluation ICD-10 Condition Codes (PT) Pain in right shoulder M25.511,Pain in left shoulder M25.512 Onset Oct 2024 Subjective Information chronic pain in both shoulders, with gradual increase in pain; no injury or trauma to shoulders per pt- xrays of shoulders is mild OA in both shoulders; R hand dominant; pain with lifting arms out to the sides--problems with dressing; reaching to top shelves of kitchen; Activity: indep with self care and home tasks with more shoulder pain; Reported Pain Level Pain Score Self Report Additional Pain Score Comments pain range 0-6/10; L shoulder > R pain L & R pain over lateral GH joint; snap, cracks and pops in shoulder; increase pain: lifting overhead, reaching into cabinets, quick motions of arm, putting on clothes or jacket decrease pain: sit, rest, has not been using any pain meds, ice or heat; sleeping is not disrupted due to shoulder pain Assessment PT Clinical Summary Ariel has the diagnosis of R and L shoulder pain. He reports gradual increase in pain, without any injury to UE's. He is R hand dominant and L shoulder is more painful for him. He is able to do everything, but pain increases with reaching up and putting on coat and shirts. Self assessment with Quick DASH rating of 16% limitation in activity level. Sleep is not disrupted due to shoulders. With the evaluation: decreased L shoulder flexion and abduction ROM and strength in L shoulder; R shoulder ranges and strength are WNL; rounded shoulder posture; increase pain with resisted L shoulder abduction and flexion motions; tenderness over L anterior and lateral shoulder; rounded shoulder posture. Skilled PT services are indicated for treatment of L shoulder impingement and pain, with modalities to decrease pain and spasms, therapeutic exercises to increase ROM and strength of L shoulder; exercises to R shoulder also to increase strength and monitor R shoulder with increase activity; education for HEP and posture. Plan of Care Interventions Electrical Stimulation,Hot Pack/Cold Pack,Manual Therapy,Neuro Re-education,Patient/Caregiver Education,Therapeutic Activities,Therapeutic Exercise,Ultrasound,Other Other Interventions taping PT Services Indicated Yes Treatment Frequency and 2x/wk for 8 visits Duration These treatments will address the objective and functional deficits as defined above. The patient will be advanced safely and appropriately in order for the patient to progress towards his/her prior level of function. Additional exercises will be introduced and as well as a comprehensive home exercise program upon discharge, if needed, ?to ensure carryover of functional gains achieved in the clinic. This treatment plan has been reviewed and agreement upon by the patient.
[2025-01-20 12:45] VITALS: BP_SYST 150
--- NOTE | 2025-01-20 13:30 | OPREHPOC ---
Outpatient Therapy Plan of Care This is a Multidisciplinary Plan of Care that may contain components documented by all disciplines (PT, OT, and ST.) PT Problem 1 PT Problem #1 Knowledge Deficit PT Goal 1 Goal / Goal Update *indep with HEP --------- progress goal met continue to progress HEP and education Target Visit 14 PT Problem 2 PT Problem #2 Pain PT Goal 1 Goal / Goal Update * pt report shoulder pain at worst of L shoulder 3 /10 --------- progress goal not met, 7/10 is worst NEW GOAL: * L shoulder pain rating 4/10 at worst Target Visit 14 PT Goal 2 Goal / Goal Update * pt report able to put on his coat without pain increase --------- progress goal not met continue towards Target Visit 14 PT Problem 3 PT Problem #3 Impaired Range of Motion PT Goal 1 Goal / Goal Update * increase L shoulder active ROM to improve use of L arm for home and self care tasks in standing L shoulder flexion to 140' and abduction to 130' --------- progress goal for abduction met continue towards flexion goal of 140' Target Visit 14 PT Problem 4 PT Problem #4 Impaired Strength PT Goal 1 Goal / Goal Update *increase strength of R and L shoulder to 4+/5, to improve use of arms with home and self care activities --------- progress goal not met continue towards Target Visit 14
--- NOTE | 2025-01-20 13:32 | PCPTNOTE ---
pt was 15 minutes late for today's reevaluation appt; he went to [facility] instead of [facility] center.
--- NOTE | 2025-01-20 13:35 | PTOPPROG ---
Assessment and note entered by Valerie Pacheco, PT Assessment Status Progress ICD-10 Condition Codes (PT) Pain in right shoulder M25.511,Pain in left shoulder M25.512 Onset Oct 2024 Subjective Information still have shoulder pain, putting on clothes or coat still hurts; am able to reach up higher better; have been doing the exercises at home; Assessment PT Clinical Summary Ariel has received a total of 8 PT sessions. Compared to the initial evaluation: pain from 0-6 /10 to 0-7/10, with more pain L shoulder; pain increase with dressing and putting on his coat. He lives alone and is able to do everything at home, without assistance. Self assessment with Quick DASH rating from 16 to 14% limitation in activity level. R active shoulder ROM is the same / WNL. L shoulder flexion and abduction increased to 130. Pain is increased with bilateral shoulder flexion and abduction motions. Strength: in standing x 5 reps with hand weight: R - flexion to 90' with 5# and abduction to 90' with 3# L flexion to 90' with 3# and abduction to 90' with 1# He has been educated on HEP and position of shoulders. The goals were partially met. Strengthening is limited due to pain of shoulders. Discussed with pt returning to his provider for follow up appointment. And option for additional treatment to shoulder of ortho consult, injections . He wants to continue therapy for better pain control and strength. Continue PT for 6 sessions. Then he will follow up with provider. Plan of Care Interventions Electrical Stimulation,Hot Pack/Cold Pack,Manual Therapy,Neuro Re-education,Patient/Caregiver Education,Therapeutic Activities,Therapeutic Exercise,Ultrasound,Other Other Interventions taping PT Services Indicated Yes Treatment Frequency and 1-2x/wk for 6 visits Duration These treatments will address the objective and functional deficits as defined above. The patient will be advanced safely and appropriately in order for the patient to progress towards his/her prior level of function. Additional exercises will be introduced and as well as a comprehensive home exercise program upon discharge, if needed, ?to ensure carryover of functional gains achieved in the clinic. This treatment plan has been reviewed and agreement upon by the patient.
[2025-02-15 13:27] VITALS: BP_SYST 150
--- NOTE | 2025-02-15 14:14 | OPREHPOC ---
Outpatient Therapy Plan of Care This is a Multidisciplinary Plan of Care that may contain components documented by all disciplines (PT, OT, and ST.) PT Problem 1 PT Problem #1 Knowledge Deficit PT Goal 1 Goal / Goal Update *indep with HEP --------- progress goal met continue to progress HEP and education Target Visit 14 Progress Met PT Problem 2 PT Problem #2 Pain PT Goal 1 Goal / Goal Update * pt report shoulder pain at worst of L shoulder --------- progress goal not met, 7/10 is worst NEW GOAL: * L shoulder pain rating 4/10 at worst update 02/16/24 1. highest 8/10 but only for a short time Target Visit 14 Progress Partially Met PT Goal 2 Goal / Goal Update * pt report able to put on his coat without pain increase --------- progress goal not met continue towards Target Visit 14 Progress Met PT Problem 3 PT Problem #3 Impaired Range of Motion PT Goal 1 Goal / Goal Update * increase L shoulder active ROM to improve use of L arm for home and self care tasks in standing L shoulder flexion to 140' and abduction to 130' --------- progress goal for abduction met continue towards flexion goal of 140' Target Visit 14 Progress Met PT Problem 4 PT Problem #4 Impaired Strength PT Goal 1 Goal / Goal Update *increase strength of R and L shoulder to 4+/5, to improve use of arms with home and self care activities --------- progress goal not met continue towards Target Visit 14 Progress Partially Met
--- NOTE | 2025-02-15 14:14 | PTOPDC ---
Assessment and note entered by Rebecca Enriquez DPT Evaluation Information Assessment Status Discharge ICD-10 Condition Codes (PT) Pain in right shoulder M25.511,Pain in left shoulder M25.512 Onset Oct 2024 Subjective Information Highest shoulder pain in last week 8/10 (only for an instant) and lowest 0/10. Reports he has noticed decreased pain and improved mobility especially in his L shoulder. Decreased pain with activities like reaching overhead to a shelf. Mild discomfort putting on a shirt. Reported Pain Level Pain Score 1: Self Report Assessment PT Clinical Summary The patient has made good progress in therapy. He demonstrates improved shoulder strength and range of motion in all planes bilaterally. He also reports decreased pain overall and improved ability to perform typical activities including dressing. Due to his progress and independence with HEP, plan for discharge at this time. He has been educated in a thorough HEP and to follow up with MD and/or PT as needed. Plan of Care PT Services Indicated No
== END 2025-03-16 12:53 | disposition home or self-care (01) ==
LOC: ANHGOSHPT 13:30
PROVIDERS: PCP Family Medicine; Visit Provider Family Medicine
DX: M25.511 Pain in right shoulder (principal); M25.512 Pain in left shoulder
CPT/HCPCS: 97110; 97161; 97530